=== PATIENT | female | born 2005 | race African-American/Black ===

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

== ENCOUNTER 2025-01-26 21:09 | Emergency (ER) | payer MEDICAID ==
[~2025-01-26] VITALS: Ht 162.6 cm; Wt 113.2 kg
[~2025-01-26 21:09] MED LIST changes: +FLUC200T PO
--- NOTE | 2025-01-26 21:27 | ED.PDOC ---
SOB-HPI HPI Comments 20 year old female came to ER due to cough. Patient has history of asthma, seen here multiple times for asthmatic attacks. For the past 4 days, she has been having non productive cough, shortness of breath and wheezing, progressively worsening despite steroids, inhalers and nebulizers. Patient saturating at 99% on room air upon arrival. Chief Complaint: Cough Time Seen by MD: 21:27 Primary Care Provider: tristan Reviewed notes: Nurses Notes Information Source: Patient Mode of Arrival: Ambulatory Severity: Moderate Timing: Days Duration: Since onset Context: At Rest History of: Asthma Prehospital treatment: Breathing Tx, Treatment Associated Signs and Symptoms: Wheeze, Cough Quality: Tightness Radiation: No Radiation Location: Chest (R), Chest (L) If cough with SOB: Non-Productive Past Medical History PAST MEDICAL HISTORY: Anxiety, Asthma, UTI'S Surgical History: Denies all surgeries ANALYSIS INTERN History: Denies all ANALYSIS INTERN Hx Family History Family History: Reviewed,noncontributory to illness Social History Smoker: Non-Smoker Alcohol: Denies ETOH Use Drugs: Denies Drug Use Lives In: Home Constitutional: denies: chills, diaphoresis, fatigue, fever, malaise, sweats, weakness, others EENTM: denies: blurred vision, double vision, ear bleeding, ear discharge, ear drainage, ear pain, ear ringing, eye pain, eye redness, hearing loss, mouth pain, mouth swelling, nasal discharge, nose bleeding, nose congestion, nose pain, photophobia, tearing, throat pain, throat swelling, voice changes, others Respiratory: reports: cough, SOB at rest, shortness of breath, wheezing; denies: hemoptysis, orthopnea, SOB with excertion, stridor, others Cardiovascular: denies: chest pain, dizzy spells, diaphoresis, Dyspnea on exertion, edema, irregular heart beat, left arm pain, lightheadedness, palpitations, PND, syncope, others Gastrointestinal: denies: abdomen distended, abdominal pain, blood streaked bowels, constipated, diarrhea, dysphagia, difficulty swallowing, hematemesis, melena, nausea, poor appetite, poor fluid intake, rectal bleeding, rectal pain, vomiting, others Genitourinary: denies: abnormal vagina bleeding, burning, dyspareunia, dysuria, flank pain, frequency, hematuria, incontinence, pain, , vagina discharge, urgency, others Neurological: denies: dizziness, fainting, headache, left sided numbness, left sided weakness, numbness, paresthesia, pre-existing deficit, right sided numbness, right sided weakness, seizure, speech problems, tingling, tremors, weakness, others Musculoskeletal: denies: back pain, gout, joint pain, joint swelling, muscle pain, muscle stiffness, neck pain, others Integumetry: denies: bruises, change in color, change in hair/nails, dryness, laceration, lesions, lumps, rash, wounds, others Allergic/Immunocompromised: denies: Difficulty Healing, Frequent Infections, Hives, Itching, others Hematologic/Lymphatic: denies: anemia, blood clots, easy bleeding, easy bruising, swollen glands, others Endocrine: denies: excessive hunger, excessive sweating, excessive thirst, excessive urination, flushing, intolerance to cold, intolerance to heat, unexplained weight gain, unexplained weight loss, others Psychiatric: denies: anxiety, bipolar disorder, depression, hopeless, panic disorder, schizophrenia, sleepless, suicidal, others Physical Exam General Appearance: No Apparent Distress, Normal, Other (able to speak in full sentences without difficulty) HEENT: Normal ENT Inspection, Pharynx Normal, TMs Normal Neck: Full Range of Motion, Non-Tender, Normal, Normal Inspection Respiratory: Chest Non-Tender, No Accessory Muscle Use, Wheezing (bilateral) Cardiovascular: No Edema, No JVD, No Murmur, No Gallop, Normal Peripheral Pulses, Regular Rate/Rhythm Breast Exam: Deferred Gastrointestinal: No Organomegaly, Non Tender, No Pulsatile Mass, Normal Bowel Sounds, Soft Genitalia: Deferred Pelvic: Deferred Rectal: Deferred Extremities: No calf tenderness, Normal capillary refill, Normal inspection, Normal range of motion, Non-tender, No pedal edema Musculoskeletal : Apperance: Normal 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 Was a procedure done?: No Differential Dx Differential Diagnosis: Anxiety, Asthma, Bronchitis, CHF, COPD, Hyperventilation, Panic Attack, Pneumonia, Pneumothorax, Respiratory Distress, URI X-Ray, Labs, Meds, VS Vital Signs Date Time Temp Pulse Resp B/P (MAP) Pulse Ox O2 Delivery O2 Flow Rate FiO2 01/26/25 22:51 99.3 85 19 127/71 (89) 98 99.3 01/26/25 22:51 85 19 98 Room Air 01/26/25 22:44 20 98 Room Air* 0 21 01/26/25 21:17 16 99 Room Air* 0 21 01/26/25 21:17 98.3 90 16 133/80 (97) 99 98.3 Current Medications Medications (Trade) Dose Ordered Sig/Devon Route Start Time Stop Time Status Last Admin Albuterol (Ventolin Medneb) 5 mg ONCE ONCE NEB 01/26/25 21:30 01/26/25 21:31 DC 01/26/25 22:44 Ipratropium [place] (Atrovent Medneb) 0.5 mg ONCE ONCE NEB 01/26/25 21:30 01/26/25 21:31 DC 01/26/25 22:44 Dexamethasone Sodium Phosphate (Decadron Injection) 10 mg ONCE ONCE PO 01/26/25 21:30 01/26/25 21:31 DC 01/26/25 22:49 Time of 1ST Reevaluation: 21:22 Reevaluation 1ST: Unchanged Time of 2ND Reevaluation: 23:12 Reevaluation 2ND: Resolved Patient Education/Counseling: Diagnosis, Treatment, Prognosis, Need For Follow Up Family Education/Counseling: No Family Present Additional Information -Reviewed patient's previous visit(s):ED physicians notes on 10/05/2023, 02/10/2024 and 05/17/2024 regarding asthmatic attacks - The following tests were ordered, and results were reviewed by me: - Additional information was gathered from interviewing the following independent Historian: - I reviewed and agreed with the following test results read by other provider: - I discussed treatments and results with medical personnel and: patient Comprehensive systems review obtained and negative except for what is stated in the HPI. pt is feeling better, lungs are clear. she has medications at home and does not need steroid or inhalers/med nebs Departure 1 Departure Time of Disposition: 23:13 Impression: Primary Impression: Asthma exacerbation Qualified Codes: J45.21 - Mild intermittent asthma with (acute) exacerbation Disposition: HOME / SELF CARE / HOMELESS Condition: Good Discharged With: Self Critical Care Note Critical Care Time?: No Stability Stability form required: No Heart Score Heart Score: Heart Score Response (Comments) Value History N/A 0 EKG N/A 0 Age N/A 0 Risk Factors N/A 0 Troponin N/A 0 Total 0 I personally scribed for JESSIE BAUTISTA MD ([email or web address]) on 01/26/25 at 21:27. Electronically submitted by Rodney Lenz ([email or web address]). JESSIE BAUTISTA MD Jan 26, 2025 21:27
[2025-01-26] MEDS: IPRATROPIUM BROM 0.5 MG/2.5ML INH SOL NEB ONE (22:44)
[2025-01-26] MEDS: ALBUTEROL SULF 2.5 MG/0.5ML(0.5%) NEB SOLN NEB ONE (22:44)
[2025-01-26] MEDS: DexAMETHasone SOD PHOS 10MG/1ML VIAL INJ PO ONE (22:49)
[2025-01-26 22:51] VITALS: BP 127/71; PULSE 85; RESP 19; TEMP 99.3; O2SAT 98
== END 2025-01-26 23:22 | disposition home or self-care (01) ==
LOC: ER 21:09
DX: J45.901 Unspecified asthma with (acute) exacerbation (principal); F41.9 Anxiety disorder, unspecified
CPT/HCPCS: 94640; 99283; J1100

== ENCOUNTER 2025-03-28 09:50 | Emergency (ER) | payer OTHER, MEDICAID ==
[~2025-03-28] VITALS: Ht 160 cm; Wt 118.4 kg
--- NOTE | 2025-03-28 10:27 | ED.PDOC ---
History of Present Illness HPI Comments This is a 20-year-old female who comes in with chief complaint of dysuria as well as frequency. The patient states that the symptoms started one week ago. There has been no nausea, vomiting or diarrhea. The patient denies any other complaints at this time. Chief Complaint: Urinary Time Seen by MD: 10:16 Primary Care Provider: kun Reviewed Notes: Nurses Notes, Medications, Allergies (Allergies to penicillin) Allergies: Coded Allergies: Penicillin G (Verified Allergy, Severe, 06/28/11) Penicillins (Verified Allergy, Unknown, 01/26/25) Home Meds Active Scripts Ciprofloxacin Hcl (Cipro) 500 Mg Tab, 1 TAB PO BID, #14 TAB Prov:ETRELL MANCILLA MD 03/28/25 Fluconazole (Diflucan) 200 Mg Tab, 1 TAB PO DAILY, #1 TAB Prov:EDIE HERR MD 11/06/24 Nitrofurantoin Monohydrate Mac (Macrobid) 100 Mg Cap, 100 MG PO BID, #14 CAP Prov:EDIE HERR MD 11/06/24 Fluconazole (Fluconazole) 150 Mg Tab, 1 TAB PO NOW for 2 Days, #2 TAB Take 1 tab now before starting antibiotics 1 tab after completion of antibiotics Prov:GERARD [facility] 09/25/24 Sulfamethoxazole W/Trimethopri (Bactrim Ds Tablet) 1 Tab Tb, 1 TAB PO BID for 7 Days, #14 TAB Prov:GER[facility] 09/25/24 Cefdinir (Cefdinir) 300 Mg Cap, 1 CAP PO BID for 7 Days, #14 CAP Prov:GISELLE FRY MD 06/29/24 Prednisone (Prednisone) 20 Mg Tab, 60 MG PO DAILY for 5 Days, #15 MG Prov:BURKE MEZA PAC 05/18/24 Metronidazole (Metronidazole) 500 Mg Tab, 500 MG PO BID, #14 TAB Prov:FRED CARABALLO 04/12/24 Sulfamethoxazole W/Trimethopri (Bactrim Ds Tablet) 1 Tab Tb, 1 TAB PO BID for 7 Days, #14 TAB Prov:FRED CARABALLO 04/12/24 Hydroxyzine Hcl (Hydroxyzine Hcl) 25 Mg Tab, 1 TAB PO TID, #30 TAB Prov:ALEX GUTIÉRREZ MD 03/03/24 Prednisone (Prednisone) 20 Mg Tab, 40 MG PO DAILY, #5 MG Prov:ALEX GUTIÉRREZ MD 03/03/24 Azithromycin (Azithromycin) 250 Mg Tab, 250 MG PO DAILY for 6 Days, #6 TAB Prov:MELVI CARRERA DO 02/11/24 Acetaminophen (Acetaminophen) 500 Mg Tab, 500 MG PO Q4HP PRN, #30 TAB Prov:ROMEO,FLORIDALMA [facility] 10/16/23 Ibuprofen (Ibuprofen) 800 Mg Tab, 1 TAB PO Q8HP PRN, #30 TAB 0 Refills Prov:ROMEO,FLORIDALMA [facility] 10/16/23 Nitrofurantoin Monohydrate Mac (Macrobid) 100 Mg Cap, 100 MG PO BID for 5 Days, #10 CAP Prov:ROMEO,FLORIDALMA [facility] 10/16/23 Oseltamivir Phosphate (Tamiflu) 75 Mg Cap, 75 MG PO BID for 5 Days, #10 CAP Prov:ROMEOFLORIDALMA [facility] 10/16/23 Fluconazole (Diflucan) 150 Mg Tab, 1 TAB PO ONCE, #1 TAB 1 Refill Prov:JUJU FREEMANP 10/05/23 Albuterol Sulfate (VENTOLIN MDI) 90 Mcg Ih, 90 MCG IN Q4HR PRN, #1 INH Prov:JUJU FREEMANP 10/05/23 Prednisone (Prednisone) 20 Mg Tab, 60 MG PO DAILY for 5 Days, #15 MG Prov:JUJU FREEMAN [facility] 10/05/23 Cephalexin Monohydrate (Cephalexin) 500 Mg Cap, 1 CAP PO TID for 7 Days, #21 CAP Prov:JUJU FREEMAN [facility] 10/05/23 Promethazine-Dm (Promethazine Dm 6.25-15 mg/5Ml) 1 Sri Sri, 1 SRI PO BID PRN for 14 Days, #150 ML Prov:ROSA NINA 08/14/23 Prednisone (Prednisone) 20 Mg Tab, 40 MG PO DAILY for 3 Days, #6 MG Prov:ROSA NINA 08/14/23 Azithromycin (ZITHROMAX TABLET) 250 Mg Tb, 250 MG PO DAILY for 5 Days, #6 TAB Take 500mg by mouth on day 1 then take 250mg by mouth on days 2-5. Prov:ROSA NINA 08/14/23 Nitrofurantoin (Nitrofurantoin) 100 Mg Cap, 1 CAP PO BID for 7 Days, #14 CAP Prov:PAIZBLANCA 07/04/23 Promethazine-Dm (Promethazine Dm 6.25-15 mg/5Ml) 1 [place], 5 ML PO TID, #150 ML Prov:FRED CARABALLO 02/25/23 Prednisone (Prednisone) 20 Mg Tab, 60 MG PO DAILY, #15 MG Prov:FRED CARABALLO 02/25/23 Azithromycin (Azithromycin) 500 Mg Tab, 1 TAB PO DAILY, #5 TAB Prov:FRED CARABALLO 02/25/23 Information Source: Patient Mode of Arrival: Ambulatory Severity: Mild Duration: Since onset Prehospital treatment: None Location: Suprapubic pain Associated signs and symptoms Dysuria and frequency Past Medical History PAST MEDICAL HISTORY: Anxiety, Asthma, UTI'S Past Medical History (Other): Sleep apnea Surgical History: Denies all surgeries [employer]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 [employer]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 Hx Family History Family History: Family hx of DM, Family hx of Cancer, Family hx of heart alex Social History Smoker: Non-Smoker Alcohol: Occasionally Drugs: Denies Drug Use Lives In: Home Constitutional: denies: chills, diaphoresis, fatigue, fever, malaise, sweats, weakness, others EENTM: denies: blurred vision, double vision, ear bleeding, ear discharge, ear drainage, ear pain, ear ringing, eye pain, eye redness, hearing loss, mouth pain, mouth swelling, nasal discharge, nose bleeding, nose congestion, nose pain, photophobia, tearing, throat pain, throat swelling, voice changes, others Respiratory: denies: cough, hemoptysis, orthopnea, SOB at rest, shortness of breath, SOB with excertion, stridor, wheezing, others Cardiovascular: denies: chest pain, dizzy spells, diaphoresis, Dyspnea on exertion, edema, irregular heart beat, left arm pain, lightheadedness, palpitations, PND, syncope, others Gastrointestinal: denies: abdomen distended, abdominal pain, blood streaked bowels, constipated, diarrhea, dysphagia, difficulty swallowing, hematemesis, melena, nausea, poor appetite, poor fluid intake, rectal bleeding, rectal pain, vomiting, others Genitourinary: reports: dysuria, frequency; denies: abnormal vagina bleeding, b urning, dyspareunia, flank pain, hematuria, incontinence, pain, , vagina discharge, urgency, others Neurological: denies: dizziness, fainting, headache, left sided numbness, left sided weakness, numbness, paresthesia, pre-existing deficit, right sided numbness, right sided weakness, seizure, speech problems, tingling, tremors, weakness, others Musculoskeletal: denies: back pain, gout, joint pain, joint swelling, muscle pain, muscle stiffness, neck pain, others Integumetry: denies: bruises, change in color, change in hair/nails, dryness, laceration, lesions, lumps, rash, wounds, others Allergic/Immunocompromised: denies: Difficulty Healing, Frequent Infections, Hives, Itching, others Hematologic/Lymphatic: denies: anemia, blood clots, easy bleeding, easy bruising, swollen glands, others Endocrine: denies: excessive hunger, excessive sweating, excessive thirst, excessive urination, flushing, intolerance to cold, intolerance to heat, unexplained weight gain, unexplained weight loss, others Psychiatric: denies: anxiety, bipolar disorder, depression, hopeless, panic disorder, schizophrenia, sleepless, suicidal, others Physical Exam General Appearance: No Apparent Distress HEENT: Normal ENT Inspection, Pharynx Normal, TMs Normal Neck: Full Range of Motion, Non-Tender, Normal, Normal Inspection Respiratory: Chest Non-Tender, Lungs Clear, No Accessory Muscle Use, No Respiratory Distress, Normal Breath Sounds Cardiovascular: No Edema, No JVD, No Murmur, No Gallop, Normal Peripheral Pulses, Regular Rate/Rhythm Breast Exam: Deferred Gastrointestinal: No Organomegaly, No Pulsatile Mass, Normal Bowel Sounds, Soft, Suprapubic, Tenderness Genitalia: Deferred Pelvic: Deferred Rectal: Deferred Extremities: No calf tenderness, Normal capillary refill, Normal inspection, Normal range of motion, Non-tender, No pedal edema Musculoskeletal : Apperance: Normal 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 Was a procedure done?: No Differential Dx Considerations may include: UTI, sepsis, generalized weakness X-Ray, Labs, Meds, VS Vital Signs Date Time Temp Pulse Resp B/P (MAP) Pulse Ox O2 Delivery O2 Flow Rate FiO2 03/28/25 10:03 98.4 103 17 112/72 (85) 100 98.4 Lab Test 03/28/25 10:00 Range/Units Urine Color Light-orange Yellow Urine Clarity Turbid H Clear Urine pH 6.0 5.0-9.0 Urine Specific [place] 1.035 1.001-1.035 Urine Protein 1+ H Negative Urine Ketones Trace Negative Urine Blood 3+ H Negative /uL Urine Nitrite Negative Negative Urine Bilirubin Negative Negative Urine Urobilinogen 2 H Negative mg/dL Urine Leukocyte Esterase 1+ Negative /uL Urine RBC 655 0 - 4 /hpf Urine Microscopic WBC 54 H 0-5 /HPF Urine Squamous Epithelial Cells Few <5 /hpf Urine Bacteria None seen None Seen /hpf Urine Mucus Few None Seen Urine Yeast (Budding) Few None Seen /hpf Urine Glucose Normal Normal mg/dL Urine Test Negative Negative Patient is being discharged with a diagnosis of UTI The patient was given a prescription of Cipro The patient will return to the emergency department's condition worsens. The test is negative Time of 1ST Reevaluation: 10:27 Reevaluation 1ST: Unchanged Patient Education/Counseling: Diagnosis, Treatment, Prognosis, Need For Follow Up Family Education/Counseling: No Family Present Departure 1 Departure Time of Disposition: 10:59 Impression: Primary Impression: UTI (urinary tract infection) Qualified Codes: N30.00 - Acute cystitis without hematuria Disposition: 01 HOME / SELF CARE / HOMELESS Condition: Fair e-Prescriptions Ciprofloxacin Hcl (Cipro) 500 Mg Tab 1 TAB PO BID, #14 TAB Prov: TERELL MANCILLA MD 03/28/25 Discharged With: Self Critical Care Note Critical Care Time?: No Stability Stability form required: No Heart Score Heart Score: Heart Score Response (Comments) Value History N/A 0 EKG N/A 0 Age N/A 0 Risk Factors N/A 0 Troponin N/A 0 Total 0 TERELL MANCILLA MD March 28, 2025 10:27
[2025-03-28 10:32] LABS: Urine Bacteria None Seen /hpf (None Seen)
[2025-03-28 10:57] LABS: Urine Blood 3+ /uL (Negative); Urine Budding Yeast FEW /hpf (None Seen); Urine Clarity Turbid (Clear); Urine Color Light-Orange (Yellow); Urine Mucus FEW (None Seen); Urine Protein, UAD 1+ (Negative); Urine Specific Gravity 1.035 (1.001-1.035); Urine Squamous Epithelial Cell FEW /hpf (<5); Urine Urobilinogen 2 mg/dL (Negative); Urine WBC 54 /HPF (0-5)
[2025-03-28] MEDS ORDERED: CIPR-173 PO (10:59)
[2025-03-28 11:42] VITALS: BP 126/72; PULSE 89; RESP 18; TEMP 98.6; O2SAT 100
== END 2025-03-28 11:45 | disposition home or self-care (01) ==
LOC: ER 09:50
DX: N39.0 Urinary tract infection, site not specified (principal); F41.9 Anxiety disorder, unspecified; J45.909 Unspecified asthma, uncomplicated; G47.30 Sleep apnea, unspecified; F10.90 Alcohol use, unspecified, uncomplicated; Y90.9 Presence of alcohol in blood, level not specified; Z88.0 Allergy status to penicillin; Z79.52 Long term (current) use of systemic steroids; Z88.1 Allergy status to other antibiotic agents; Z79.899 Other long term (current) drug therapy; Z87.440 Personal history of urinary (tract) infections
CPT/HCPCS: 81001; 81025

== ENCOUNTER 2025-03-29 11:09 | Emergency (ER) | payer OTHER, MEDICAID ==
[~2025-03-29] VITALS: Ht 160 cm; Wt 118.7 kg
[~2025-03-29 11:09] MED LIST changes: +CIPR-173 PO
--- NOTE | 2025-03-29 11:38 | ED.PDOC ---
History of Present Illness HPI Comments This is a 20-year-old female who comes in with chief complaint of headache as well as some sinus pain. The patient states that the symptoms have been going on for the past three days. The patient was actually seen here yesterday and diagnosed with a UTI. She is also complaining of some nausea as well as blurred vision for the past three days. Upon arrival, the patient was having some wheezing as well. The patient does have a history of asthma and states that she does need a breathing treatment. Time Seen by MD: 11:18 Primary Care Provider: kun Reviewed Notes: Nurses Notes, Medications, Allergies (No allergies to m edications) Allergies: Coded Allergies: Penicillin G (Verified Allergy, Severe, 06/28/11) Penicillins (Verified Allergy, Unknown, 01/26/25) Home Meds Active Scripts Ciprofloxacin Hcl (Cipro) 500 Mg Tab, 1 TAB PO BID, #14 TAB Prov:TERELL MANCILLA MD 03/28/25 Fluconazole (Diflucan) 200 Mg Tab, 1 TAB PO DAILY, #1 TAB Prov:EDIE HERR MD 11/06/24 Nitrofurantoin Monohydrate Mac (Macrobid) 100 Mg Cap, 100 MG PO BID, #14 CAP Prov:EDIE HERR MD 11/06/24 Fluconazole (Fluconazole) 150 Mg Tab, 1 TAB PO NOW for 2 Days, #2 TAB Take 1 tab now before starting antibiotics 1 tab after completion of antibiotics Prov:GERARD ALVAREZ 09/25/24 Sulfamethoxazole W/Trimethopri (Bactrim Ds Tablet) 1 Tab Tb, 1 TAB PO BID for 7 Days, #14 TAB Prov:GERARD ALVAREZ 09/25/24 Cefdinir (Cefdinir) 300 Mg Cap, 1 CAP PO BID for 7 Days, #14 CAP Prov:GISELLE FRY MD 06/29/24 Prednisone (Prednisone) 20 Mg Tab, 60 MG PO DAILY for 5 Days, #15 MG Prov:BURKE MEZA PAC 05/18/24 Metronidazole (Metronidazole) 500 Mg Tab, 500 MG PO BID, #14 TAB Prov:FRED CARABALLO PA 04/12/24 Sulfamethoxazole W/Trimethopri (Bactrim Ds Tablet) 1 Tab Tb, 1 TAB PO BID for 7 Days, #14 TAB Prov:FRED CARABALLO 04/12/24 Hydroxyzine Hcl (Hydroxyzine Hcl) 25 Mg Tab, 1 TAB PO TID, #30 TAB Prov:ALEX GUTIÉRREZ MD 03/03/24 Prednisone (Prednisone) 20 Mg Tab, 40 MG PO DAILY, #5 MG Prov:ALEX GUTIÉRREZ MD 03/03/24 Azithromycin (Azithromycin) 250 Mg Tab, 250 MG PO DAILY for 6 Days, #6 TAB Prov:MELVI CARRERA DO 02/11/24 Acetaminophen (Acetaminophen) 500 Mg Tab, 500 MG PO Q4HP PRN, #30 TAB Prov:ROMEOFLORIDALMA Dewayne PAC 10/16/23 Ibuprofen (Ibuprofen) 800 Mg Tab, 1 TAB PO Q8HP PRN, #30 TAB 0 Refills Prov:FLORIDALMA [facility] 10/16/23 Nitrofurantoin Monohydrate Mac (Macrobid) 100 Mg Cap, 100 MG PO BID for 5 Days, #10 CAP Prov:FLORIDALMA [facility] 10/16/23 Oseltamivir Phosphate (Tamiflu) 75 Mg Cap, 75 MG PO BID for 5 Days, #10 CAP Prov:FLORIDALMA [facility] 10/16/23 Fluconazole (Diflucan) 150 Mg Tab, 1 TAB PO ONCE, #1 TAB 1 Refill Prov:JUJU FREEMANP 10/05/23 Albuterol Sulfate (VENTOLIN MDI) 90 Mcg Ih, 90 MCG IN Q4HR PRN, #1 INH Prov:JUJU FREEMANP 10/05/23 Prednisone (Prednisone) 20 Mg Tab, 60 MG PO DAILY for 5 Days, #15 MG Prov:JUJU FREEMAN [facility] 10/05/23 Cephalexin Monohydrate (Cephalexin) 500 Mg Cap, 1 CAP PO TID for 7 Days, #21 CAP Prov:JUJU FREEMAN [facility] 10/05/23 Promethazine-Dm (Promethazine Dm 6.25-15 mg/5Ml) 1 Sri Sri, 1 SRI PO BID PRN for 14 Days, #150 ML Prov:ROSA NINAP 08/14/23 Prednisone (Prednisone) 20 Mg Tab, 40 MG PO DAILY for 3 Days, #6 MG Prov:ROSA NINA [employer] 08/14/23 Azithromycin (ZITHROMAX TABLET) 250 Mg Tb, 250 MG PO DAILY for 5 Days, #6 TAB Take 500mg by mouth on day 1 then take 250mg by mouth on days 2-5. Prov:MAICOROSA Ron [facility] 08/14/23 Nitrofurantoin (Nitrofurantoin) 100 Mg Cap, 1 CAP PO BID for 7 Days, #14 CAP Prov:BLANCA PAIZ [facility] 07/04/23 Promethazine-Dm (Promethazine Dm 6.25-15 mg/5Ml) 1 Sri Sri, 5 ML PO TID, #150 ML Prov:FRED CARABALLO 02/25/23 Prednisone (Prednisone) 20 Mg Tab, 60 MG PO DAILY, #15 MG Prov:FRED CARABALLO 02/25/23 Azithromycin (Azithromycin) 500 Mg Tab, 1 TAB PO DAILY, #5 TAB Prov:FRED CARABALLO 02/25/23 Information Source: Patient Mode of Arrival: Ambulatory Severity: Moderate Timing: Days Duration: Since onset Prehospital treatment: None Associated signs and symptoms Associated dizziness as well as nausea, blurred vision and headache Past Medical History PAST MEDICAL HISTORY: Anxiety, Asthma, UTI'S Surgical History: Denies all surgeries [employer] History: Denies all [employer]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 Hx Family History Family History: Family hx of DM, Family hx of Cancer, Family hx of heart alex Social History Smoker: Non-Smoker Alcohol: Occasionally Drugs: Denies Drug Use Lives In: Home Constitutional: denies: chills, diaphoresis, fatigue, fever, malaise, sweats, weakness, others EENTM: reports: blurred vision; denies: double vision, ear bleeding, ear discharge, ear drainage, ear pain, ear ringing, eye pain, eye redness, hearing loss, mouth pain, mouth swelling, nasal discharge, nose bleeding, nose congestion, nose pain, photophobia, tearing, throat pain, throat swelling, voice changes, others Respiratory: reports: shortness of breath, wheezing; denies: cough, hemoptysis, orthopnea, SOB at rest, SOB with excertion, stridor, others Cardiovascular: denies: chest pain, dizzy spells, diaphoresis, Dyspnea on exertion, edema, irregular heart beat, left arm pain, lightheadedness, palpitations, PND, syncope, others Gastrointestinal: reports: nausea; denies: abdomen distended, abdominal pain, blood streaked bowels, constipated, diarrhea, dysphagia, difficulty swallowing, hematemesis, melena, poor appetite, poor fluid intake, rectal bleeding, rectal pain, vomiting, others Genitourinary: denies: abnormal vagina bleeding, burning, dyspareunia, dysuria, flank pain, frequency, hematuria, incontinence, pain, , vagina discharge, urgency, others Neurological: reports: dizziness, headache; denies: fainting, left sided numbness, left sided weakness, numbness, paresthesia, pre-existing deficit, right sided numbness, right sided weakness, seizure, speech problems, tingling, tremors, weakness, others Musculoskeletal: denies: back pain, gout, joint pain, joint swelling, muscle pain, muscle stiffness, neck pain, others Integumetry: denies: bruises, change in color, change in hair/nails, dryness, laceration, lesions, lumps, rash, wounds, others Allergic/Immunocompromised: denies: Difficulty Healing, Frequent Infections, Hives, Itching, others Hematologic/Lymphatic: denies: anemia, blood clots, easy bleeding, easy bruising, swollen glands, others Endocrine: denies: excessive hunger, excessive sweating, excessive thirst, excessive urination, flushing, intolerance to cold, intolerance to heat, unexplained weight gain, unexplained weight loss, others Psychiatric: denies: anxiety, bipolar disorder, depression, hopeless, panic disorder, schizophrenia, sleepless, suicidal, others Physical Exam General Appearance: Mild Distress HEENT: Normal ENT Inspection, Pharynx Normal, TMs Normal, Other (Tenderness to the sinuses) Neck: Full Range of Motion, Non-Tender, Normal, Normal Inspection Respiratory: Chest Non-Tender, Decreased Breath Sounds, No Accessory Muscle Use, Respiratory Distress, Wheezing Cardiovascular: No Edema, No JVD, No Murmur, No Gallop, Normal Peripheral Pulses, Regular Rate/Rhythm Breast Exam: Deferred Gastrointestinal: No Organomegaly, Non Tender, No Pulsatile Mass, Normal Bowel Sounds, Soft Genitalia: Deferred Pelvic: Deferred Rectal: Deferred Extremities: No calf tenderness, Normal capillary refill, Normal inspection, Normal range of motion, Non-tender, No pedal edema Musculoskeletal : Apperance: Normal Neurologic: Alert, spinning frame changer II-XII nml as Tested, No Motor Deficits, Normal Affect, Normal Mood, No Sensory Deficits Cerebellar Function: Normal Reflexes: Normal Skin: Dry, Normal Color, Warm Lymphatic: No Adenopathy Was a procedure done? Was a procedure done?: No Differential Dx Considerations may include: Bronchitis, pneumonia X-Ray, Labs, Meds, VS Vital Signs Date Time Temp Pulse Resp B/P (MAP) Pulse Ox O2 Delivery O2 Flow Rate FiO2 03/29/25 12:26 18 96 Room Air* 0 21 03/29/25 11:40 98.7 87 18 138/92 (107) 97 98.7 Current Medications Medications (Trade) Dose Ordered Sig/Devon Route Start Time Stop Time Status Last Admin Ipratropium [place] (Atrovent Medneb) 1 mg ONCE ONCE N 03/29/25 11:45 03/29/25 11:46 DC 03/29/25 12:26 Albuterol (Ventolin Medneb) 20 mg ONCE ONCE HHN 03/29/25 11:45 03/29/25 11:46 DC 03/29/25 12:26 The patient was given a continuous breathing treatment of albuterol and Atrovent. A sinus series x-ray was ordered and shows: Images Reviewed?: Images reviewed and evaluated by me Time of 1ST Reevaluation: 11:37 Reevaluation 1ST: Unchanged Patient Education/Counseling: Diagnosis, Treatment, Prognosis, Need For Follow Up Family Education/Counseling: No Family Present Departure 1 Departure Time of Disposition: 12:34 Impression: Primary Impression: Asthma exacerbation Qualified Codes: J45.901 - Unspecified asthma with (acute) exacerbation Additional Impression: Tension headache Disposition: HOME / SELF CARE / HOMELESS Condition: Fair Discharged With: Self Critical Care Note Critical Care Time?: No Stability Stability form required: No Heart Score Heart Score: Heart Score Response (Comments) Value History N/A 0 EKG N/A 0 Age N/A 0 Risk Factors N/A 0 Troponin N/A 0 Total 0 TERELL MANCILLA MD March 29, 2025 11:38
--- NOTE | 2025-03-29 12:02 | DVH ---
PARANASAL SINUSES: INDICATION: pain and dizziness TECHNIQUE: 4 views FINDINGS: The paranasal sinuses are well-aerated. No abnormal soft tissue densities or air-fluid levels are present. Osseous alignment is anatomic. No displaced fractures are demonstrated. IMPRESSION: Normal sinus series
[2025-03-29] MEDS: ALBUTEROL SULF 2.5 MG/0.5ML(0.5%) NEB SOLN HHN ONE (12:26)
[2025-03-29] MEDS: IPRATROPIUM BROM 0.5 MG/2.5ML INH SOL HHN ONE (12:26)
[2025-03-29 13:04] VITALS: BP 146/78; PULSE 106; RESP 18; TEMP 98.1; O2SAT 99
== END 2025-03-29 14:03 | disposition home or self-care (01) ==
LOC: ER 11:14
DX: J45.901 Unspecified asthma with (acute) exacerbation (principal); G44.209 Tension-type headache, unspecified, not intractable; F41.9 Anxiety disorder, unspecified; F10.90 Alcohol use, unspecified, uncomplicated; Y90.9 Presence of alcohol in blood, level not specified; Z87.440 Personal history of urinary (tract) infections; Z88.0 Allergy status to penicillin; Z79.899 Other long term (current) drug therapy; Z79.52 Long term (current) use of systemic steroids
CPT/HCPCS: 70210; 94640

== ENCOUNTER 2025-04-11 04:11 | Inpatient (IN) | payer MEDICAID, OTHER ==
[~2025-04-11] VITALS: Ht 160 cm; Wt 122.5 kg
[2025-04-11] VITALS (7 sets, daily range): BP systolic 120–139; BP diastolic 74–84; PULSE 60–92; RESP 16–20; TEMP 97.7–98.5; O2SAT 98–100
--- NOTE | 2025-04-11 04:40 | ED.PDOC ---
History of Present Illness HPI Comments 20 y/o F presents with nonradiating, substernal chest pain. Patient endorses on sudden and unprovoked onset of pain that awoke her from her sleep at around 0300. Pain is stated to have been constant since, with associated sweats and shaking. Only history of anxiety, asthma, and recent UTI and FMHx of gallstones. Patient denies having any nausea, vomiting, diarrhea, or further associated symptoms. Chief Complaint: Abdominal Pain Time Seen by MD: 04:20 Primary Care Provider: kun Reviewed Notes: Nurses Notes, Medications, Allergies Allergies: Coded Allergies: Penicillin G (Verified Allergy, Severe, 06/28/11) Penicillins (Verified Allergy, Unknown, 01/26/25) Home Meds Active Scripts Ciprofloxacin Hcl (Cipro) 500 Mg Tab, 1 TAB PO BID, #14 TAB Prov:TERELL MANCILLA MD 03/28/25 Fluconazole (Diflucan) 200 Mg Tab, 1 TAB PO DAILY, #1 TAB Prov:EDIE HERR MD 11/06/24 Nitrofurantoin Monohydrate Mac (Macrobid) 100 Mg Cap, 100 MG PO BID, #14 CAP Prov:EDIE HERR MD 11/06/24 Fluconazole (Fluconazole) 150 Mg Tab, 1 TAB PO NOW for 2 Days, #2 TAB Take 1 tab now before starting antibiotics 1 tab after completion of antibiotics Prov:GERARD ALVAREZ 09/25/24 Sulfamethoxazole W/Trimethopri (Bactrim Ds Tablet) 1 Tab Tb, 1 TAB PO BID for 7 Days, #14 TAB Prov:GERARD ALVAREZ 09/25/24 Cefdinir (Cefdinir) 300 Mg Cap, 1 CAP PO BID for 7 Days, #14 CAP Prov:GISELLE FRY MD 06/29/24 Prednisone (Prednisone) 20 Mg Tab, 60 MG PO DAILY for 5 Days, #15 MG Prov:BURKE MEZA 05/18/24 Metronidazole (Metronidazole) 500 Mg Tab, 500 MG PO BID, #14 TAB Prov:FRED CARABALLO 04/12/24 Sulfamethoxazole W/Trimethopri (Bactrim Ds Tablet) 1 Tab Tb, 1 TAB PO BID for 7 Days, #14 TAB Prov:FRED CARABALLO 04/12/24 Hydroxyzine Hcl (Hydroxyzine Hcl) 25 Mg Tab, 1 TAB PO TID, #30 TAB Prov:ALEX GUTIÉRREZ MD 03/03/24 Prednisone (Prednisone) 20 Mg Tab, 40 MG PO DAILY, #5 MG Prov:ALEX GUTIÉRREZ MD 03/03/24 Azithromycin (Azithromycin) 250 Mg Tab, 250 MG PO DAILY for 6 Days, #6 TAB Prov:DEBIMELVI Ariadne DELGADILLO 02/11/24 Acetaminophen (Acetaminophen) 500 Mg Tab, 500 MG PO Q4HP PRN, #30 TAB Prov:FLORIDALMA [facility] 10/16/23 Ibuprofen (Ibuprofen) 800 Mg Tab, 1 TAB PO Q8HP PRN, #30 TAB 0 Refills Prov:FLORIDALMA [facility] 10/16/23 Nitrofurantoin Monohydrate Mac (Macrobid) 100 Mg Cap, 100 MG PO BID for 5 Days, #10 CAP Prov:FLORIDALMA [facility] 10/16/23 Oseltamivir Phosphate (Tamiflu) 75 Mg Cap, 75 MG PO BID for 5 Days, #10 CAP Prov:FLORIDALMA [facility] 10/16/23 Fluconazole (Diflucan) 150 Mg Tab, 1 TAB PO ONCE, #1 TAB 1 Refill Prov:JUJU FREEMAN [facility] 10/05/23 Albuterol Sulfate (VENTOLIN MDI) 90 Mcg Ih, 90 MCG IN Q4HR PRN, #1 INH Prov:JUJU FREEMAN [facility] 10/05/23 Prednisone (Prednisone) 20 Mg Tab, 60 MG PO DAILY for 5 Days, #15 MG Prov:JUJU FREEMAN [facility] 10/05/23 Cephalexin Monohydrate (Cephalexin) 500 Mg Cap, 1 CAP PO TID for 7 Days, #21 CAP Prov:JUJU FREEMAN [facility] 10/05/23 Promethazine-Dm (Promethazine Dm 6.25-15 mg/5Ml) 1 [place], 1 SRI PO BID PRN for 14 Days, #150 ML Prov:ROSA NINA [facility] 08/14/23 Prednisone (Prednisone) 20 Mg Tab, 40 MG PO DAILY for 3 Days, #6 MG Prov:ROSA NINA [facility] 08/14/23 Azithromycin (ZITHROMAX TABLET) 250 Mg Tb, 250 MG PO DAILY for 5 Days, #6 TAB Take 500mg by mouth on day 1 then take 250mg by mouth on days 2-5. Prov:ROSA NINA [employer]ILY [employer] 08/14/23 Nitrofurantoin (Nitrofurantoin) 100 Mg Cap, 1 CAP PO BID for 7 Days, #14 CAP Prov:BLANCA PAIZ [employer]ILY [employer]UD[employer] 07/04/23 Promethazine-Dm (Promethazine Dm 6.25-15 mg/5Ml) 1 [place], 5 ML PO TID, #150 ML Prov:FRED CARABALLO 02/25/23 Prednisone (Prednisone) 20 Mg Tab, 60 MG PO DAILY, #15 MG Prov:FRED CARABALLO 02/25/23 Azithromycin (Azithromycin) 500 Mg Tab, 1 TAB PO DAILY, #5 TAB Prov:FRED CARABALLO 02/25/23 Reported Medications Ergocalciferol (Vitamin D) 50,000 Unit Cap, 1 CAP PO QWEEKLY 04/11/25 Information Source: Patient Mode of Arrival: Ambulatory Severity: Moderate Timing: Hours Review of Systems: REVIEW OF SYSTEMS: Sweats. No fever, no chills, or fatigue HEENT: No sore throat, no earache, no congestion, no neck pain. Cardiac: Chest pain. No palpitations. Lungs: No shortness of breath, no cough. GI: No nausea, no vomiting, no diarrhea, no constipation, no abdominal pain : No dysuria, frequency, or urgency. No hematuria. Musculoskeletal: No joint pain , no joint swelling, no extremity edema. Skin: No rash, no itching. Neuro: Tremors. No headache, no dizziness, no weakness Vital Signs Vital Signs Date Time Temp Pulse Resp B/P (MAP) Pulse Ox O2 Delivery O2 Flow Rate FiO2 04/11/25 08:00 98.7 90 18 132/80 (97) 99 98.7 04/11/25 05:15 Room Air* 0 21 Physical Exam General: Awake, alert and oriented. No acute distress. Skin: Skin in warm, dry and intact. Appropriate color for ethnicity. HEENT: The head is normocephalic and atraumatic. Conjunctivae are clear without exudates or hemorrhage. Sclera is non-icteric. EOM are intact. No signs of nystagmus. Eyelids are normal in appearance without swelling or lesions. Oral mucosa is pink and moist Neck: The neck is supple with normal range of motion. No JVD. Cardiac: Sternal chest wall is tender. Heart rate and rhythm are normal. No murmurs, gallops, or rubs are auscultated. Respiratory: No signs of respiratory distress. Lung sounds are clear in all lobes bilaterally without rales, rhonchi, or wheezes. Abdominal: Abdomen is soft, non-tender without distention, guarding or rigidity. Bowel sounds are present and normoactive in all four quadrants. Extremities: Upper and lower extremities are atraumatic in appearance without deformity or edema. Neurological: The patient is awake, alert and oriented to person, place, and time with normal speech. Speech is clear. There is no facial asymmetry. Psychiatric: Appropriate mood and affect. Good judgement and insight. Past Medical History PAST MEDICAL HISTORY: Anxiety, Asthma, UTI'S Surgical History: Denies all surgeries LIQUID LOADER History: Denies all LIQUID LOADER Hx Family History Family History: Family hx of DM, Family hx of Cancer, Family hx of heart alex Social History Smoker: Non-Smoker Alcohol: Occasionally Drugs: Denies Drug Use Lives In: Home Was a procedure done? Was a procedure done?: No EKG EKG : Pulse Rate (adult): 99 [place]: Normal Cardiac Rhythm: NSR Block: None Hypertrophy: None ST: Normal Differential Dx Considerations may include: Differential diagnoses considered include acute ischemic coronary syndrome, aortic dissection, cardiac tamponade, mediastinitis, pulmonary embolus, pneumothorax, tension pneumothorax, esophageal rupture, coronary artery vasospasm, myocarditis, pericarditis, pneumonia, pulmonary edema, esophageal tear, pancreatitis, aortic stenosis, dilated cardiomyopathy, hypertrophic cardiomyopathy, mitral valve prolapse, malignancy, pleuritis, pneumomediastinum, primary pulmonary hypertension, cholecystitis, esophageal spasm, esophagus, gastritis, GERD, peptic ulcer disease, costochondritis, fibromyalgia, rib fracture, herpes zoster, radicular syndromes, thoracic outlet syndrome, somatization. X-Ray, Labs, Meds, VS Vital Signs Date Time Temp Pulse Resp B/P (MAP) Pulse Ox O2 Delivery O2 Flow Rate FiO2 04/11/25 08:00 98.7 90 18 132/80 (97) 99 98.7 04/11/25 05:36 99 04/11/25 05:29 98.3 98 16 136/81 (99) 99 98.3 04/11/25 05:15 Room Air* 0 21 04/11/25 04:54 20 99 Room Air* 0 21 21 04/11/25 04:30 97.7 112 18 144/80 (101) 97 97.7 04/11/25 04:18 99 Lab Test 04/11/25 06:56 04/11/25 05:20 04/11/25 04:30 Range/Units Troponin I High Sensitivity < 3 L < 3 L </=34 ng/L White Blood Count 10.3 4.4-10.8 10^3/uL Red Blood Count 4.87 4.0-5.20 10^6/uL Hemoglobin 12.8 12.2-16.2 g/dL Hematocrit 38.1 36.0-46.0 % Mean Corpuscular Volume 78.3 L 80.0-100.0 fL Mean Corpuscular Hemoglobin 26.3 L 28.0-32.0 pg Mean Corpuscular Hemoglobin Concent 33.7 32.0-36.0 g/dL Red Cell Distribution Width 14.8 H 11.8-14.3 % Platelet Count 346 140-450 10^3/uL Mean Platelet Volume 7.5 6.9-10.8 fL Neutrophils (%) (Auto) 72.5 37.0-80.0 % Lymphocytes (%) (Auto) 19.4 10.0-50.0 % Monocytes (%) (Auto) 7.1 0.0-12.0 % Eosinophils (%) (Auto) 0.6 0.0-7.0 % Basophils (%) (Auto) 0.4 0.0-2.0 % Neutrophils # (Auto) 7.4 1.6-8.6 10 ^3/uL Lymphocytes # (Auto) 2.0 0.4-5.4 10 ^3/uL Monocytes # (Auto) 0.7 0-1.3 10 ^3/uL Eosinophils # (Auto) 0.1 0-0.8 10 ^3/uL Basophils # (Auto) 0 0-0.2 10 ^3/uL Nucleated Red Blood Cells 0.1 % Sodium Level 142 136-145 mmol/L Potassium Level 3.2 L 3.5-5.1 mmol/L Chloride Level 106 98-107 mmol/L Carbon Dioxide Level 24 20-31 mmol/L Anion Gap 12 5-15 Blood Urea Nitrogen 10 9-23 mg/dL Creatinine 0.86 0.550-1.02 mg/dL Glomerular Filtration Rate Calc 99 >90 mL/min BUN/Creatinine Ratio 11.6 10.0-20.0 Serum Glucose 115 H 74-106 mg/dL Hemoglobin A1c 5.4 <5.7 % A1C Calcium Level 9.2 8.7-10.4 mg/dL Magnesium Level 2.0 1.6-2.6 mg/dL Total Bilirubin 0.7 0.2-1.0 mg/dL Aspartate Amino Transferase (AST) 243 H 13-40 U/L Alanine Aminotransferase (ALT) 109 H 7-40 U/L Alkaline Phosphatase 105 46-116 U/L Creatine Kinase 84 34-145 U/L Total Protein 7.4 5.7-8.2 g/dL Albumin 4.3 3.2-4.8 g/dL Triglycerides Level 84 < 150 mg/dL Cholesterol Level 160 < 200 mg/dL LDL Cholesterol 103 H < 100 mg/dL HDL Cholesterol 45 40-59 mg/dL Amylase Level 82 30-118 U/L Lipase 35 12-53 U/L Thyroid Stimulating Hormone (TSH) 1.29 0.55-4.78 uIU/mL Free Thyroxine (T4) Calculated 1.34 0.89-1.76 ng/dL Hepatitis A IgM Antibody Pending Hepatitis B Surface Antigen Pending Hepatitis B Core IgM Antibody Pending Hepatitis C Antibody Pending Urine Color Light-orange Yellow Urine Clarity Turbid H Clear Urine pH 6.0 5.0-9.0 Urine Specific [place] 1.025 1.001-1.035 Urine Protein Trace H Negative Urine Ketones Negative Negative Urine Blood 3+ H Negative /uL Urine Nitrite Negative Negative Urine Bilirubin Negative Negative Urine Urobilinogen Normal Negative mg/dL Urine Leukocyte Esterase Negative Negative /uL Urine RBC 342 0 - 4 /hpf Urine Microscopic WBC 7 H 0-5 /HPF Urine Squamous Epithelial Cells Few <5 /hpf Urine Bacteria Few H None Seen /hpf Urine Mucus Few None Seen Urine Yeast (Budding) Occasional None Seen /hpf Urine Glucose Normal Normal mg/dL Urine Test Negative Negative Urine Opiates Screen Neg NEGATIVE Urine Fentanyl Screen Neg NEGATIVE Urine Barbiturates Screen Neg NEGATIVE Urine Phencyclidine Screen Neg NEGATIVE Urine Amphetamines Screen Neg NEGATIVE Urine Benzodiazepines Screen Neg NEGATIVE Urine Cocaine Screen Neg NEGATIVE Urine Cannabinoids Screen Neg NEGATIVE Chlamydia trachomatis (INES) Pending Neisseria gonorrhoeae (INES) Pending Current Medications Medications (Trade) Dose Ordered Sig/[place] Route Start Time Stop Time Status Last Admin Albuterol (Ventolin Medneb) 2.5 mg ONCE ONCE NEB 04/11/25 04:45 04/11/25 04:46 DC 04/11/25 04:53 Acetaminophen (Tylenol Tablet) 650 mg ONCE ONCE PO 04/11/25 04:45 04/11/25 04:46 DC 04/11/25 05:21 Al Hydrox/Mg Hydrox/Simethicone (Maalox Plus) 30 ml ONCE ONCE PO 04/11/25 04:45 04/11/25 04:46 DC 04/11/25 05:20 Lidocaine HCl (Xylocaine 2% Viscous) 10 ml ONCE ONCE PO 04/11/25 04:45 04/11/25 04:46 DC 04/11/25 05:20 Potassium Chloride (Klor-Con Tablet) 40 meq ONCE ONCE PO 04/11/25 06:15 04/11/25 06:16 DC 04/11/25 07:02 Sodium Chloride 1,000 ml @ 1,000 mls/hr Q1H ONCE IV 04/11/25 06:15 04/11/25 07:14 DC 04/11/25 07:01 [place] [address] Ph: [phone] DIAGNOSTIC IMAGING Diagnostic Imaging Report : [id number] Signed PATIENT: ODILIA QUINN ACCT: [id number] UNIT: [id number] : 2005 LOC: ER ROOM / BED: / AGE / SEX: 20 / F ADM STATUS: REG ER SERVICE 0422 ORDERING PHYSICIAN: MILAGROS HAMMER MD PROCEDURE(s): CXR1 - CHEST XRAY 1 VIEW REASON: Chest pain ORDER NUMBER(s): [id number], ACCESSION NUMBER(s): [id number] CHEST RADIOGRAPH Indication: Chest pain Technique: Single frontal view of the chest was obtained Comparison: XY CHEST PORTABLE on DOS: 05/18/24 FINDINGS: Lines and Tubes: None Lungs: No focal consolidation. Pleura: No effusion. No pneumothorax. Cardiomediastinal contours: Unremarkable Bones: No acute osseous abnormality. IMPRESSION: 1. No acute cardiopulmonary disease. ATED BY: PEPPER DOMÍNGUEZ MD DICTATED DATE/TIME: 04/11/25449 SIGNED BY: PEPPER DOMÍNGUEZ MD SIGNED DATE/TIME: 04/11/25449 CC: [place] [address] Ph: [phone] DIAGNOSTIC IMAGING Diagnostic Imaging Report : [id number] Signed PATIENT: ODILIA QUINN ALEXXAACCT: [id number] UNIT: [id number] : 2005 LOC: ER ROOM / BED: / AGE / SEX: 20 / F ADM STATUS: REG ER SERVICE 0 ORDERING PHYSICIAN: MILAGROS HAMMER MD PROCEDURE(s): GBUS - GALLBLADDER REASON: Epigastric pain, elevated LFTs ORDER NUMBER(s): [id number], ACCESSION NUMBER(s): [id number] EXAM: US Abdomen Limited, Gallbladder CLINICAL INDICATION: Epigastric pain, elevated LFTs TECHNIQUE: Real-time ultrasound of the right upper quadrant with image documentation. COMPARISON: None FINDINGS: LIVER: Liver measures up to 14.7 cm. GALLBLADDER: Probable gallbladder sludge. Negative Agee's sign was reported by the bookkeeping service sales agent. No gallstones. COMMON BILE DUCT: CBD not visualized. PANCREAS: Unremarkable as visualized. RIGHT KIDNEY: Right kidney measures up to 10.4 cm. OTHER FINDINGS: . IMPRESSION: No convincing evidence of acute cholecystitis. ATED BY: FLORIDALMA GARNICA MD DICTATED DATE/TIME: 04/11/25707 SIGNED BY: FLORIDALMA GARNICA MD SIGNED DATE/TIME: 04/11/25707 CC: Time of 1ST Reevaluation: 04:50 Reevaluation 1ST: Unchanged Patient Education/Counseling: Other (Need for admission) Family Education/Counseling: No Family Present Departure 1 Departure Time of Disposition: 06:00 Impression: Primary Impression: Chest pain Additional Impressions: Elevated LFTs Abnormal urinalysis Disposition: ADMITTED INPATIENT Condition: Stable Comments Patient admitted to hospitalist service for further observation, evaluation and treatment. Critical Care Note Critical Care Time?: No Stability Stability form required: No Heart Score Heart Score: Heart Score Response (Comments) Value History Slightly Suspicious 0 EKG Normal 0 Age <45 0 Risk Factors No known risk factors 0 Troponin Normal limit 0 Total 0 I personally scribed for MILAGROS HAMMER MD ([email or web address]) on 04/11/25 at 04:40. Electronically submitted by Adebayo Elizondo ([email or web address]). I personally scribed for MILAGROS HAMMER MD ([email or web address]) on 04/11/25 at 04:40. Electronically submitted by Adebayo Elizondo ([email or web address]). I personally scribed for MILAGROS HAMMER MD ([email or web address]) on 04/11/25 at 05:36. Electronically submitted by Adebayo Elizondo ([email or web address]). I personally scribed for MILAGROS HAMMER MD ([email or web address]) on 04/11/25 at 05:38. Electronically submitted by Adebayo Elizondo ([email or web address]). I personally scribed for MILAGROS HAMMER MD ([email or web address]) on 04/11/25 at 07:17. Electronically submitted by Anil Griggs ([email or web address]). MILAGROS HAMMER MD Apr 11, 2025 04:40
[2025-04-11] MEDS: ALBUTEROL SULF 2.5 MG/0.5ML(0.5%) NEB SOLN NEB ONE (04:53)
--- NOTE | 2025-04-11 04:53 | DVH ---
CHEST RADIOGRAPH Indication: Chest pain Technique: Single frontal view of the chest was obtained Comparison: XY CHEST PORTABLE on DOS: 05/18/24 FINDINGS: Lines and Tubes: None Lungs: No focal consolidation. Pleura: No effusion. No pneumothorax. Cardiomediastinal contours: Unremarkable Bones: No acute osseous abnormality. IMPRESSION: 1. No acute cardiopulmonary disease.
[2025-04-11 05:20] LABS: Urine Bacteria FEW /hpf (None Seen); Urine Blood 3+ /uL (Negative); Urine Budding Yeast OCCASIONAL /hpf (None Seen); Urine Clarity Turbid (Clear); Urine Color Light-Orange (Yellow); Urine Mucus FEW (None Seen); Urine Protein, UAD TRACE (Negative); Urine Specific Gravity 1.025 (1.001-1.035); Urine Squamous Epithelial Cell FEW /hpf (<5); Urine Urobilinogen Normal (Negative); Urine WBC 7 /HPF (0-5)
[2025-04-11] MEDS: LIDOCAINE VISCOUS 2% 15ML UD PO ONE (05:20)
[2025-04-11] MEDS: MAALOX PLUS or MAALOX 30 ML PO ONE (05:20)
[2025-04-11] MEDS: ACETAMINOPHEN 325 MG TAB PO ONE (05:21)
[2025-04-11 05:39] LABS: Basophils # (auto) 0 10 ^3/uL (0-0.2); Basophils % (auto) 0.4 % (0.0-2.0); Eosinophils # (auto) 0.1 10 ^3/uL (0-0.8); Eosinophils % (auto) 0.6 % (0.0-7.0); Hematocrit 38.1 % (36.0-46.0); Hemoglobin 12.8 g/dL (12.2-16.2); Lymphocytes % (auto) 19.4 % (10.0-50.0); Mean Corpuscular Hemoglobin 26.3 pg (28.0-32.0); Mean Corpuscular Hgb Conc. 33.7 g/dL (32.0-36.0); Mean Corpuscular Volume 78.3 fL (80.0-100.0); Monocytes # (auto) 0.7 10 ^3/uL (0-1.3); Monocytes % (auto) 7.1 % (0.0-12.0); Neutrophils # (auto) 7.4 10 ^3/uL (1.6-8.6); Neutrophils % (auto) 72.5 % (37.0-80.0); Nucleated Red Blood Cells % 0.1 %; Platelet Count (auto) 346 10^3/uL (140-450); Red Blood Cells 4.87 10^6/uL (4.0-5.20); Red Cell Distribution Width 14.8 % (11.8-14.3); White Blood Cell 10.3 10^3/uL (4.4-10.8)
[2025-04-11 05:53] LABS: Albumin 4.3 g/dL (3.2-4.8); Alkaline Phosphatase 105 U/L (46-116); Anion Gap 12 (5-15); BUN/Creatinine Ratio 11.6 (10.0-20.0); Bilirubin, Total 0.7 mg/dL (0.2-1.0); Blood Urea Nitrogen 10 mg/dL (9-23); Calcium 9.2 mg/dL (8.7-10.4); Carbon Dioxide 24 mmol/L (20-31); Chloride 106 mmol/L (98-107); Sodium 142 mmol/L (136-145); Total Protein 7.4 g/dL (5.7-8.2)
[2025-04-11 05:54] LABS: Alanine Aminotransferase 109 U/L (7-40); Aspartate Aminotransferase 243 U/L (13-40); Glucose 115 mg/dL (74-106); Potassium 3.2 mmol/L (3.5-5.1)
--- NOTE | 2025-04-11 06:07 | ECG ---
[facility] Test Date: 2025-04-11 Test Time: 04:18:18 Pat Name: ODILIA QUINN Department: ED Room: [address] [place] [address] Gender: F Applications Consultant: [email or web address] : 2005 Requested By: MILAGROS HAMMER Order Number: [id number] Reading MD: Christian Weller Measurements Intervals [place] Rate: 99 P: 42 [place]: 156 QRS: 68 QRSD: 78 T: 4 QT: 351 QTc: 451 Interpretive Statements Sinus rhythm Borderline T abnormalities, anterior leads Electronically Signed On 04-12-2025 9:27:49 PDT by Christian Weller Please click the below link to view image of tracing.
[2025-04-11] MEDS: SODIUM CHLORIDE 0.9% 1,000 ML IV ONE (07:01)
[2025-04-11] MEDS: POTASSIUM CHL 20 Meq TABLET PO ONE ×2 (07:02→10:33)
--- NOTE | 2025-04-11 07:12 | DVH ---
EXAM: US Abdomen Limited, Gallbladder CLINICAL INDICATION: Epigastric pain, elevated LFTs TECHNIQUE: Real-time ultrasound of the right upper quadrant with image documentation. COMPARISON: None FINDINGS: LIVER: Liver measures up to 14.7 cm. GALLBLADDER: Probable gallbladder sludge. Negative Agee's sign was reported by the scada operator. No gallstones. COMMON BILE DUCT: CBD not visualized. PANCREAS: Unremarkable as visualized. RIGHT KIDNEY: Right kidney measures up to 10.4 cm. OTHER FINDINGS: . IMPRESSION: No convincing evidence of acute cholecystitis.
[2025-04-11] MEDS ORDERED: NITROGLYCERIN 0.4 MG SL TAB SL PRN ×2 (08:15)
[2025-04-11] MEDS ORDERED: MORPHINE SULFATE INJ 2 MG/ml SYRG IV PRN (08:15)
[2025-04-11] MEDS ORDERED: MORPHINE SULFATE 4 MG/ML SYR/VIAL IV PRN (08:15)
[2025-04-11] MEDS ORDERED: ONDANSETRON HCL 4 MG/2 ML VIAL IV PRN (08:15)
[2025-04-11] MEDS ORDERED: ERGO1CAP12 PO (08:34)
--- NOTE | 2025-04-11 08:40 | DVHHP2 ---
History of Present Illness Reason for Visit: Chest pain History of Present Illness Mateus Chamorro is a 20-year-old female with past medical history of asthma, anxiety, cholelithiasis, and UTI who presents to the ED with chest pain that started around 3:00 a.m. this morning. She reports sweats and shaking during the time. Upon examination patient states that her pain is 8/10 in the epigastric area describes it as "pain" and constant. Reports that there are no triggering or alleviating factors. She also reports that this is the 1st time this has happened. Patient reports that she occasionally drinks but does not use drugs or smoke. Patient denies any shortness of breath, fever, chills, lightheadedness, weakness, dizziness, recent trauma or injury, recent travels, recent sick contacts, recent ingestion of spoiled food, abdominal pain, nausea, vomiting, or diarrhea. Pulmonary: Asthma Hepatobiliary: Cholelithiasis Psych: Anxiety Renal/: UTI Past Surgical History: None Family History: Cancer, DM, Other Smoke: No ALCOHOL: occassional Drugs: None Lives: with Family Domestic Violence: Neg Review of Systems Cardiovascular: Chest Pain Allergies: Coded Allergies: Penicillin G (Verified Allergy, Severe, 06/28/11) Penicillins (Verified Allergy, Unknown, 01/26/25) Medications Current Medications Medications Dose Ordered Sig/Devon Route Start Time Stop Time Status Last Admin Dose Admin Aspirin 81 mg DAILY PO 04/11/25 10:00 Atorvastatin Calcium 40 mg HS PO 04/11/25 22:00 Morphine Sulfate 2 mg Q30MP PRN IV 04/11/25 08:15 Acetaminophen 650 mg Q6HP PRN PO 04/11/25 08:15 Nitroglycerin 0.4 mg Q5MINP PRN SL 04/11/25 08:15 Ondansetron HCl 4 mg Q4HP PRN IV 04/11/25 08:15 Patient Own Medication 1 tab TID PO 04/11/25 14:00 UNV Ergocalciferol 50,000 unit QWEEKLY PO 04/11/25 08:45 UNV Exam Vital Signs Vital Signs Date Time Temp Pulse Resp B/P (MAP) Pulse Ox O2 Delivery O2 Flow Rate FiO2 04/11/25 08:00 98.7 90 18 132/80 (97) 99 98.7 04/11/25 05:15 Room Air* 0 21 General Appearance: Alert, Oriented X3, Cooperative, No acute distress HEENT: Atraumatic, PERRLA, EOMI, Mucous membr. moist/pink Respiratory: Clear to auscultation, Normal air movement Cardiovascular: Regular rate, Normal S1, Normal S2 Abdominal: Soft Extremities: No clubbing, No cyanosis, No edema Skin: No significant lesion Neuro: Normal gait, Normal speech, Strength at 5/5 X4 ext, Normal tone, Sensation intact Psych/Mental Status: Mental status NL, Mood NL Labs/Xrays Labs Test 04/11/25 08:32 04/11/25 05:20 04/11/25 04:30 Range/Units White Blood Count 10.3 4.4-10.8 10^3/uL Red Blood Count 4.87 4.0-5.20 10^6/uL Hemoglobin 12.8 12.2-16.2 g/dL Hematocrit 38.1 36.0-46.0 % Mean Corpuscular Volume 78.3 L 80.0-100.0 fL Mean Corpuscular Hemoglobin 26.3 L 28.0-32.0 pg Mean Corpuscular Hemoglobin Concent 33.7 32.0-36.0 g/dL Red Cell Distribution Width 14.8 H 11.8-14.3 % Platelet Count 346 140-450 10^3/uL Mean Platelet Volume 7.5 6.9-10.8 fL Neutrophils (%) (Auto) 72.5 37.0-80.0 % Lymphocytes (%) (Auto) 19.4 10.0-50.0 % Monocytes (%) (Auto) 7.1 0.0-12.0 % Eosinophils (%) (Auto) 0.6 0.0-7.0 % Basophils (%) (Auto) 0.4 0.0-2.0 % Neutrophils # (Auto) 7.4 1.6-8.6 10 ^3/uL Lymphocytes # (Auto) 2.0 0.4-5.4 10 ^3/uL Monocytes # (Auto) 0.7 0-1.3 10 ^3/uL Eosinophils # (Auto) 0.1 0-0.8 10 ^3/uL Basophils # (Auto) 0 0-0.2 10 ^3/uL Nucleated Red Blood Cells 0.1 % Sodium Level 142 136-145 mmol/L Potassium Level 3.2 L 3.5-5.1 mmol/L Chloride Level 106 98-107 mmol/L Carbon Dioxide Level 24 20-31 mmol/L Anion Gap 12 5-15 Blood Urea Nitrogen 10 9-23 mg/dL Creatinine 0.86 0.550-1.02 mg/dL Glomerular Filtration Rate Calc 99 >90 mL/min BUN/Creatinine Ratio 11.6 10.0-20.0 Serum Glucose 115 H 74-106 mg/dL Calcium Level 9.2 8.7-10.4 mg/dL Total Bilirubin 0.7 0.2-1.0 mg/dL Aspartate Amino Transferase (AST) 243 H 13-40 U/L Alanine Aminotransferase (ALT) 109 H 7-40 U/L Alkaline Phosphatase 105 46-116 U/L Total Protein 7.4 5.7-8.2 g/dL Albumin 4.3 3.2-4.8 g/dL Lipase 35 12-53 U/L Urine Color Light-orange Yellow Urine Clarity Turbid H Clear Urine pH 6.0 5.0-9.0 Urine Specific [place] 1.025 1.001-1.035 Urine Protein Trace H Negative Urine Ketones Negative Negative Urine Blood 3+ H Negative /uL Urine Nitrite Negative Negative Urine Bilirubin Negative Negative Urine Urobilinogen Normal Negative mg/dL Urine Leukocyte Esterase Negative Negative /uL Urine RBC 342 0 - 4 /hpf Urine Microscopic WBC 7 H 0-5 /HPF Urine Squamous Epithelial Cells Few <5 /hpf Urine Bacteria Few H None Seen /hpf Urine Mucus Few None Seen Urine Yeast (Budding) Occasional None Seen /hpf Urine Glucose Normal Normal mg/dL Urine Test Negative Negative EXAM: US Abdomen Limited, Gallbladder CLINICAL INDICATION: Epigastric pain, elevated LFTs TECHNIQUE: Real-time ultrasound of the right upper quadrant with image documentation. COMPARISON: None FINDINGS: LIVER: Liver measures up to 14.7 cm. GALLBLADDER: Probable gallbladder sludge. Negative Agee's sign was reported by the build manager. No gallstones. COMMON BILE DUCT: CBD not visualized. PANCREAS: Unremarkable as visualized. RIGHT KIDNEY: Right kidney measures up to 10.4 cm. OTHER FINDINGS: . IMPRESSION: No convincing evidence of acute cholecystitis. CHEST RADIOGRAPH Indication: Chest pain Technique: Single frontal view of the chest was obtained Comparison: XY CHEST PORTABLE on DOS: 05/18/24 FINDINGS: Lines and Tubes: None Lungs: No focal consolidation. Pleura: No effusion. No pneumothorax. Cardiomediastinal contours: Unremarkable Bones: No acute osseous abnormality. IMPRESSION: 1. No acute cardiopulmonary disease. Assessment/Plan Assessment/Plan Assessment Chest pain rule out ACS Hypokalemia Transaminitis History of asthma History of anxiety History of cholelithiasis History of UTI Plan Admit to tele Replete lytes Ultrasound gallbladder noted NS given ED Antiemetics Antipyretics Duo nebs Placed noted Urine culture Chlamydia GC Troponin HCG Chest x-ray noted EKG UA Amylase UDS Echo ordered Aspirin + statin Lipid panel Free T4 Hemoglobin A1c Hepatitis panel Lipid panel CK TSH Diet Home medications reconciled DVT prophylaxis-not indicated patient ambulating PUD prophylaxis-not indicated no history of GERD or GI bleed Discussed plan of care with patient and nurse Plan discussed with: Patient My Orders Orders - IDRIS LOPEZ Procedure Category Date Status Time Admit ADMIT 04/11/25 Transmitted 08:11 Code Status CODE 04/11/25 Transmitted 08:11 Vital Signs JANETT 04/11/25 In Process 08:11 Braker Passenger Train JANETT 04/11/25 In Process 08:11 Cardiac DIET 04/11/25 Transmitted Diet-2gna,Lofat,Lochol Breakfast Aspirin Tablet PHA 04/11/25 In Process 10:00 Atorvastatin (Lipitor) PHA 04/11/25 In Process 22:00 Morphine Sulfate PHA 04/11/25 In Process Injection 08:15 Acetaminophen Tablet PHA 04/11/25 In Process (Tylenol Tablet) 08:15 Complete Blood Count LAB 04/12/25 Verified 04:00 Basic Metabolic Panel LAB 04/12/25 Verified 04:00 Magnesium LAB 04/12/25 Verified 04:00 Amylase LAB 04/12/25 Verified 04:00 Echo 2d Mode Cardiac US 04/11/25 Logged DOP 08:11 Nitroglycerin PHA 04/11/25 In Process Sublingual (Ntrostat 08:15 Ondansetron Hcl PHA 04/11/25 In Process (Zofran) 08:15 Electrocardigram EKG 04/12/25 Logged 04:00 Cardiac JANETT 04/11/25 In Process Rehabilitation - Outpa Stat Ekg For Chest JANETT 04/11/25 In Process Pain 08:11 Notify Of Changes JANETT 04/11/25 In Process From Base 08:11 Online Retailer For JANETT 04/11/25 In Process 24 Hours 08:11 Emergency Dysrhythmia JANETT 04/11/25 In Process Protocol 08:11 Rhythm Strips Once JANETT 04/11/25 In Process Every Shift 08:11 Oxygen By Nasal RT 04/11/25 Transmitted Cannula 08:11 Magnesium Sulfate PHA 04/11/25 In Process 1gm/100ml 08:15 Magnesium LAB 04/11/25 In Process 08:11 Thyroid Stimulating LAB 04/11/25 In Process Hormone 08:11 Drug Screen LAB 04/11/25 In Process 08:11 Hemoglobin A1c LAB 04/11/25 In Process 08:11 Lipid Panel LAB 04/11/25 In Process 08:11 Free T4 (Free LAB 04/11/25 In Process Thyroxine) 08:11 Amylase LAB 04/11/25 In Process 05:20 (Nf) Hydroxyzine Hcl PHA 04/11/25 Logged 14:00 Ergocalciferol PHA 04/11/25 Logged (Vitamin D 50,000 08:45 Acute Hepatitis Panel LAB 04/11/25 Logged 08:34 Thyroid Stimulating LAB 04/11/25 Transmitted Hormone 08:38 Creatine Kinase LAB 04/11/25 Transmitted 08:38 Date of Service: Apr 11, 2025 Billing Provider: IDRIS LOPEZ Common Visit Codes: [id number] INP/OBS CARE (HIGH) IDRIS LOPEZ Apr 11, 2025 08:40
[2025-04-11] MEDS ORDERED: ERGOCALCIFEROL 50,000 UNIT(1.25MG) CAP PO SCH (08:45)
[2025-04-11] MEDS: ASPirin 81 mg TAB PO SCH (10:34)
[2025-04-11] MEDS: MAGNESIUM SULFATE 1GM/100ML 100 ML IV ONE (10:34)
--- NOTE | 2025-04-11 13:26 | DVHPN2 ---
Subjective 20-year-old female with a history of asthma comes with chief complaint of chest pain The pain is sharp located in the epigastric area and lower chest in his center She also had some wheezing and shortness of breaths this morning She uses a nebulizer and albuterol at home for an asthma attack and she thinks she had an asthma attack this morning Changes from previous H/P or p: Changes Objective Vitals Vital Signs Date Time Temp Pulse Resp B/P (MAP) Pulse Ox O2 Delivery O2 Flow Rate FiO2 04/11/25 08:00 98.7 90 18 132/80 (97) 99 98.7 04/11/25 05:15 Room Air* 0 21 General Appearance: Alert, Oriented X3, Cooperative, No acute distress Lungs: Other (Bilateral diffuse wheezing) Cardiovascular: Regular rate, Normal S1, Normal S2, No murmurs Abdomen: Normal bowel sounds, Soft, No tenderness Extremities: No edema Medications Current Medications Medications Dose Ordered Sig/Devon Route Start Time Stop Time Status Last Admin Dose Admin Aspirin 81 mg DAILY PO 04/11/25 10:00 04/11/25 10:34 81 MG Atorvastatin Calcium 40 mg HS PO 04/11/25 22:00 Morphine Sulfate 2 mg Q30MP PRN IV 04/11/25 08:15 Acetaminophen 650 mg Q6HP PRN PO 04/11/25 08:15 Nitroglycerin 0.4 mg Q5MINP PRN SL 04/11/25 08:15 Ondansetron HCl 4 mg Q4HP PRN IV 04/11/25 08:15 Hydroxyzine Pamoate 25 mg TID PO 04/11/25 14:00 Future Hold Ergocalciferol 50,000 unit QWEEKLY PO 04/11/25 08:45 Hold Laboratory Results Laboratory Tests 04/11/25 05:20 Chemistry Test 04/11/25 05:20 Albumin 4.3 g/dL (3.2-4.8) Calcium Level 9.2 mg/dL (8.7-10.4) Magnesium Level 2.0 mg/dL (1.6-2.6) Total Protein 7.4 g/dL (5.7-8.2) Lipid panel Test 04/11/25 05:20 Cholesterol Level Pending HDL Cholesterol Pending Lipase 35 U/L (12-53) Triglycerides Level Pending LFT Test 04/11/25 05:20 Alanine Aminotransferase (ALT) 109 U/L (7-40) H Alkaline Phosphatase 105 U/L (46-116) Aspartate Amino Transferase (AST) 243 U/L (13-40) H Total Bilirubin 0.7 mg/dL (0.2-1.0) HgA1c, TSH Test 04/11/25 05:20 Hemoglobin A1c 5.4 % A1C (<5.7) Thyroid Stimulating Hormone (TSH) 1.29 uIU/mL (0.55-4.78) Urinalysis Test 04/11/25 04:30 Urine Color Light-orange (Yellow) Urine Clarity Turbid (Clear) H Urine pH 6.0 (5.0-9.0) Urine Specific [place] 1.025 (1.001-1.035) Urine Protein Trace (Negative) H Urine Ketones Negative (Negative) Urine Blood 3+ /uL (Negative) H Urine Nitrite Negative (Negative) Urine Bilirubin Negative (Negative) Urine Urobilinogen Normal mg/dL (Negative) Urine Leukocyte Esterase Negative /uL (Negative) Urine RBC 342 /hpf (0 - 4) Urine Microscopic WBC 7 /HPF (0-5) H Urine Squamous Epithelial Cells Few /hpf (<5) Urine Bacteria Few /hpf (None Seen) H Urine Mucus Few (None Seen) Urine Yeast (Budding) Occasional /hpf (None Urine Glucose Normal mg/dL (Normal) Urine Test Negative (Negative) Assessment/Plan Assessment/Plan Chest pain most likely due to asthma Acute asthma exacerbation Acute non hypoxic respiratory failure due to asthma Hypokalemia Elevated liver function tests Gallbladder sludge Plan Start IV steroids IV Zithromax Oxygen as needed Med neb treatments as needed She was given magnesium IV and breathing treatment with albuterol Gallbladder shows gallbladder sludge but no acute cholecystitis Replace potassium as needed Monitor the patient closely Full code The rest of the management will depend on the hospital course Advance directives discussed for 16 minute Plan discussed with: Patient Date of Service: Apr 11, 2025 Billing Provider: VIOLET MARES MD Common Visit Codes: [id number] INP/OBS CARE(HIGH) Secondary Visit Codes: [id number] CARE PLAN 30 MINUTES VIOLET MARES MD Apr 11, 2025 13:26
--- NOTE | 2025-04-11 13:48 | DVHSR ---
APPROVED REPORT EXAM: Two-dimensional and M-mode echocardiogram with Doppler and color Doppler. Blood Pressure: 136/81 mmHg INDICATION Chest Pain RISK FACTORS Height: 63, Weight: 260 DIMENSIONS LVDd4.9 (3.8-5.7cm)LA (2D)3.9 (1.9-4.0cm)Aortic Root2.9 (2.0-3.7cm) LVDs3.1 (2.5-4.0cm)LA (MM) (1.9-4.0cm)Aortic Cusp Exc2.0 (1.5-2.0cm) EF (%) 68.0 (55-70%)Rt. Atrium3.9 (1.9-4.0cm)Asc. Aorta cm IVSd1.0 (0.7-1.1cm)RV (D) (1.8-2.4cm) PWd1.0 (0.7-1.1cm) Mitral Valve MitralMitral Stenosis E wave1.11m/sMV Mean GR.mmHg A wave0.45m/sMV Peak GR.mmHg E/A ratio2.52D MVAcm2 DECEL [id number] 1/2 [id number] IVRTmsDop MVA3.33cm2 Aortic Valve Aortic ValveAortic Stenosis V10.91m/Marvin Mean GR.5mmHg V21.41m/Marvin Peak GR.8mmHg LVOT Diameter2.0 (1.8-2.4cm)Doppler AVA2.03cm2 Pulmonic Valve V21.33m/s Tricuspid Valve TR Velocity2.19m/s [id number] Conclusion lvef 70% normal rv function normal atria no severe valve abnormaliteis noted
[2025-04-11] MEDS ORDERED: hydrOXYzine 25 MG TAB or CAP PO SCH (14:00)
[2025-04-11] MEDS: methylPREDNISolone SOD SUCC 125 MG/2 ML VL IV ONE (14:24)
[2025-04-11] MEDS: AZITHROMYCIN 500MG/ 250ML 250 ML IV ONE (14:25)
[2025-04-11 14:54] LABS: Amphetamine Screen, Urine Neg (NEGATIVE); Barbiturate Scree,Urine Neg (NEGATIVE); Benzodiazephine Screen, Urine Neg (NEGATIVE); Cannabinoid Screen, Urine Neg (NEGATIVE); Cocaine Screen, Urine Neg (NEGATIVE); Opiate Scree,Urine Neg (NEGATIVE); Phencyclidine Screen, Urine Neg (NEGATIVE)
[2025-04-11] MEDS: ATORVASTATIN 20 MG TAB PO SCH (21:32)
[2025-04-11] MEDS: methylPREDNISolone SOD SUCC 40 MG/ML VL IV SCH (21:32)
[2025-04-11] MEDS: ACETAMINOPHEN 325 MG TAB PO PRN (21:47)
[2025-04-12] VITALS (8 sets, daily range): BP systolic 117–129; BP diastolic 73–77; PULSE 72–93; RESP 17–20; TEMP 97.9–98.3; O2SAT 99–100
[2025-04-12 07:13] LABS: Basophils # (auto) 0 10 ^3/uL (0-0.2); Eosinophils # (auto) 0 10 ^3/uL (0-0.8); Hemoglobin 13.5 g/dL (12.2-16.2); Monocytes # (auto) 0.5 10 ^3/uL (0-1.3); Neutrophils # (auto) 10.8 10 ^3/uL (1.6-8.6)
[2025-04-12 07:16] LABS: Basophils % (auto) 0.1 % (0.0-2.0); Hematocrit 41.3 % (36.0-46.0); Lymphocytes # (auto) 0.8 10 ^3/uL (0.4-5.4); Lymphocytes % (auto) 6.8 % (10.0-50.0); Mean Corpuscular Hemoglobin 25.7 pg (28.0-32.0); Mean Corpuscular Hgb Conc. 32.6 g/dL (32.0-36.0); Mean Corpuscular Volume 78.8 fL (80.0-100.0); Monocytes % (auto) 4.2 % (0.0-12.0); Neutrophils % (auto) 88.9 % (37.0-80.0); Platelet Count (auto) 381 10^3/uL (140-450); Red Blood Cells 5.24 10^6/uL (4.0-5.20); Red Cell Distribution Width 15.3 % (11.8-14.3); White Blood Cell 12.1 10^3/uL (4.4-10.8)
[2025-04-12 07:21] LABS: Anion Gap 13 (5-15); BUN/Creatinine Ratio 13.6 (10.0-20.0); Blood Urea Nitrogen 11 mg/dL (9-23); Calcium 9.7 mg/dL (8.7-10.4); Chloride 105 mmol/L (98-107); Magnesium 2.1 mg/dL (1.6-2.6); Potassium 4.1 mmol/L (3.5-5.1); Sodium 138 mmol/L (136-145); Total Protein 7.9 g/dL (5.7-8.2)
[2025-04-12 07:22] LABS: Albumin 4.4 g/dL (3.2-4.8); Amylase 77 U/L (30-118); Bilirubin, Total 0.4 mg/dL (0.2-1.0)
[2025-04-12 07:29] LABS: Alanine Aminotransferase 309 U/L (7-40); Alkaline Phosphatase 134 U/L (46-116); Aspartate Aminotransferase 132 U/L (<34); Carbon Dioxide 20 mmol/L (20-31); Glucose 139 mg/dL (74-106)
[2025-04-12] MEDS: ALBUTEROL SULF 2.5 MG/0.5ML(0.5%) NEB SOLN NEB PRN (09:48)
[2025-04-12] MEDS: AZITHROMYCIN 500MG/ 250ML 250 ML IV SCH (09:58)
[2025-04-12 11:40] LABS: Hepatitis A Ab IgM Negative; Hepatitis B Core IgM Negative (Negative); Hepatitis B Surface Antigen Negative (Negative); Hepatitis C Antibody Negative (Negative)
--- NOTE | 2025-04-12 15:27 | DVHDS2 ---
Discharge Summary Date of Admission Apr 11, 2025 at 08:11 Date of Discharge: Apr 12, 2025 Labs/Diagnostic Data: Laboratory Results Test 04/12/25 05:26 04/11/25 08:32 04/11/25 05:20 04/11/25 04:30 White Blood Count 12.1 10^3/uL (4.4-10.8) Red Blood Count 5.24 10^6/uL (4.0-5.20) Hemoglobin 13.5 g/dL (12.2-16.2) Hematocrit 41.3 % (36.0-46.0) Mean Corpuscular Volume 78.8 fL (80.0-100.0) Mean Corpuscular Hemoglobin 25.7 pg (28.0-32.0) Mean Corpuscular Hemoglobin Concent 32.6 g/dL (32.0-36.0) Red Cell Distribution Width 15.3 % (11.8-14.3) Platelet Count 381 10^3/uL (140-450) Mean Platelet Volume 8.1 fL (6.9-10.8) Neutrophils (%) (Auto) 88.9 % (37.0-80.0) Lymphocytes (%) (Auto) 6.8 % (10.0-50.0) Monocytes (%) (Auto) 4.2 % (0.0-12.0) Eosinophils (%) (Auto) 0.0 % (0.0-7.0) Basophils (%) (Auto) 0.1 % (0.0-2.0) Neutrophils # (Auto) 10.8 10 ^3/uL (1.6-8.6) Lymphocytes # (Auto) 0.8 10 ^3/uL (0.4-5.4) Monocytes # (Auto) 0.5 10 ^3/uL (0-1.3) Eosinophils # (Auto) 0 10 ^3/uL (0-0.8) Basophils # (Auto) 0 10 ^3/uL (0-0.2) Nucleated Red Blood Cells 0.0 % Sodium Level 138 mmol/L (136-145) Potassium Level 4.1 mmol/L (3.5-5.1) Chloride Level 105 mmol/L (98-107) Carbon Dioxide Level 20 mmol/L (20-31) Anion Gap 13 (5-15) Blood Urea Nitrogen 11 mg/dL (9-23) Creatinine 0.81 mg/dL (0.550-1.02) Glomerular Filtration Rate Calc 107 mL/min (>90) BUN/Creatinine Ratio 13.6 (10.0-20.0) Serum Glucose 139 mg/dL (74-106) Calcium Level 9.7 mg/dL (8.7-10.4) Magnesium Level 2.1 mg/dL (1.6-2.6) Total Bilirubin 0.4 mg/dL (0.2-1.0) Aspartate Amino Transferase (AST) 132 U/L (<34) Alanine Aminotransferase (ALT) 309 U/L (7-40) Alkaline Phosphatase 134 U/L (46-116) Total Protein 7.9 g/dL (5.7-8.2) Albumin 4.4 g/dL (3.2-4.8) Amylase Level 77 U/L (30-118) Troponin I High Sensitivity < 3 ng/L (</=34) Hemoglobin A1c 5.4 % A1C (<5.7) Creatine Kinase 84 U/L (34-145) Triglycerides Level 84 mg/dL (< 150) Cholesterol Level 160 mg/dL (< 200) LDL Cholesterol 103 mg/dL (< 100) HDL Cholesterol 45 mg/dL (40-59) Lipase 35 U/L (12-53) Thyroid Stimulating Hormone (TSH) 1.29 uIU/mL (0.55-4.78) Free Thyroxine (T4) Calculated 1.34 ng/dL (0.89-1.76) Hepatitis A IgM Antibody Negative Hepatitis B Surface Antigen Negative (Negative) Hepatitis B Core IgM Antibody Negative (Negative) Hepatitis C Antibody Negative (Negative) Urine Color Light-orange (Yellow) Urine Clarity Turbid (Clear) Urine pH 6.0 (5.0-9.0) Urine Specific [place] 1.025 (1.001-1.035) Urine Protein Trace (Negative) Urine Ketones Negative (Negative) Urine Blood 3+ /uL (Negative) Urine Nitrite Negative (Negative) Urine Bilirubin Negative (Negative) Urine Urobilinogen Normal mg/dL (Negative) Urine Leukocyte Esterase Negative /uL (Negative) Urine RBC 342 /hpf (0 - 4) Urine Microscopic WBC 7 /HPF (0-5) Urine Squamous Epithelial Cells Few /hpf (<5) Urine Bacteria Few /hpf (None Seen) Urine Mucus Few (None Seen) Urine Yeast (Budding) Occasional /hpf (None Urine Glucose Normal mg/dL (Normal) Urine Test Negative (Negative) Urine Opiates Screen Neg (NEGATIVE) Urine Fentanyl Screen Neg (NEGATIVE) Urine Barbiturates Screen Neg (NEGATIVE) Urine Phencyclidine Screen Neg (NEGATIVE) Urine Amphetamines Screen Neg (NEGATIVE) Urine Benzodiazepines Screen Neg (NEGATIVE) Urine Cocaine Screen Neg (NEGATIVE) Urine Cannabinoids Screen Neg (NEGATIVE) Other Laboratory Tests 04/12/25 05:26 Brief Hx & Hospital Course: Final diagnoses: Chest pain most likely due to asthma Acute asthma exacerbation Acute non hypoxic respiratory failure due to asthma Hypokalemia Elevated liver function tests Gallbladder sludge She was admitted for chest pain She had wheezing She was given IV steroids, med-nebs, O2 Today she felt better LFTs were high She said she was taking large amount of Tylenol and Motrin lately, she does not take statins DC home DC Tylenol Take prednisone that she has at home x 5 days F/U PCP PATRICIA Condition at Discharge: Stable Final Diagnosis/Problems List CHEST PAIN, LIKELY DUE TO ASTHMA ACUTE ASTHMA EXACERBATION ACUTE NON-HYPOXIC RESPIRATORY FAILURE ELEVATED LIVER ENZYMES GALLBLADDER SLUDGE Discharge Disposition: Home SNF Discharge Will this Physician continue t: No Discharge Instruct/Medications Diet: Regular Activity: No Restrictions, As Tolerated Follow Up/Referral: PCP PATRICIA Medications: Stop Tylenol Continue other home meds Prednisoe x 5 days (already has at home) Discharge Statement: "Patient was advised to return to the ER or call 911 if any headaches, dizziness, shortness of breath, chest pain, abdominal pain, bleeding, fevers, or worsening of medical condition. Patient was counseled about treatment plan, medications, possible side effects, patientverbalized understanding. All questions were answered to the best of my ability. This discharge took greater then 30 minutes in planning, reviewing documentation, counseling the patient, and discussing with other team members." ASSESSMENT ASSESSMENT Assessment CHEST PAIN, LIKELY DUE TO ASTHMA ACUTE ASTHMA EXACERBATION ACUTE NON-HYPOXIC RESPIRATORY FAILURE ELEVATED LIVER ENZYMES GALLBLADDER SLUDGE Date of Service: Apr 12, 2025 Billing Provider: VIOLET MARES MD Common Visit Codes: 88815-UZD/OBS DISCH DAY >30min VIOLET MARES MD Apr 12, 2025 15:27
[2025-04-12 23:07] LABS: Chlamydia Trachomatis, NAA Negative (Negative); Neisseria gonorrhoeae, NAA Negative (Negative)
== END 2025-04-12 13:51 | disposition home or self-care (01) | DRG 133 ==
LOC: ER 04:11 → OVERFLOW 08:11 → TELE-EAST 15:14
PROVIDERS: ADMIT Internal Medicine Geriatric Medicine; ATTEND Internal Medicine Geriatric Medicine
DX: J96.00 Acute respiratory failure, unspecified whether with hypoxia or hypercapnia (principal); J45.901 Unspecified asthma with (acute) exacerbation; E87.6 Hypokalemia; F41.9 Anxiety disorder, unspecified; R74.01 Elevation of levels of liver transaminase levels; K82.8 Other specified diseases of gallbladder; Z88.0 Allergy status to penicillin; Z79.2 Long term (current) use of antibiotics; Z79.1 Long term (current) use of non-steroidal anti-inflammatories (NSAID); Z79.899 Other long term (current) drug therapy; Z83.3 Family history of diabetes mellitus; Z87.440 Personal history of urinary (tract) infections
CPT/HCPCS: 36415; 71045; 76705; 80053; 80061; 80074; 80307; 81001; 81025; 82150; 82550; 83036; 83690; 83735; 84439; 84443; 84484; 85025; 87086; 93005; 93306; 94640; G0378

== ENCOUNTER 2025-06-16 10:25 | Emergency (ER) | payer MEDICAID ==
[~2025-06-16] VITALS: Ht 162.6 cm; Wt 121.5 kg
[~2025-06-16 10:25] MED LIST changes: -ACET500T58 PO; -AZIT-185 PO; -AZIT-43 PO; -BACDST PO; -CEFD300C2 PO; -CEPH500C PO; -CIPR-173 PO; +ERGO1CAP12 PO; -FLUC150T38 PO; -FLUC150T47 PO; -FLUC200T PO; -IBUP-1456 PO; -MET500T PO; -NITR-52 PO; -NITR-87 PO; -PRED20TA2 PO; -TAMIFLU PO
--- NOTE | 2025-06-16 11:17 | ED.PDOC ---
History of Present Illness HPI Comments 20 y.o female with PMHx of asthma, presents to the ED for a chief complaint of body pain associated with abdominal pain that started one week ago. Patient reports new onset of pain, states worsens on palpation and when placing clothes on, described as a burning sensation. Patient also reports upper abdominal pain that is non radiating and constant. She denies any nausea, vomiting, diarrhea, fever, chills. Chief Complaint: Body Pain Time Seen by MD: 11:01 Primary Care Provider: kun Reviewed Notes: Nurses Notes, Medications, Allergies Allergies: Coded Allergies: Penicillin G (Verified Allergy, Severe, 06/28/11) Penicillins (Verified Allergy, Unknown, 01/26/25) Home Meds Active Scripts Hydroxyzine Hcl (Hydroxyzine Hcl) 25 Mg Tab, 1 TAB PO TID, #30 TAB Prov:ALEX GUTIÉRREZ MD 03/03/24 Albuterol Sulfate (VENTOLIN MDI) 90 Mcg Ih, 90 MCG IN Q4HR PRN, #1 INH Prov:JUJU FREEMAN SECRETARIAL TEACHER 10/05/23 Promethazine-Dm (Promethazine Dm 6.25-15 mg/5Ml) 1 Anibal Anibal, 1 ANIBAL PO BID PRN for 14 Days, #150 ML Prov:ROSA NINA SECRETARIAL TEACHER 08/14/23 Promethazine-Dm (Promethazine Dm 6.25-15 mg/5Ml) 1 Anibal Anibal, 5 ML PO TID, #150 ML Prov:FRED CARABALLO 02/25/23 Azithromycin (Azithromycin) 500 Mg Tab, 1 TAB PO DAILY, #5 TAB Prov:FRED CARABALLO 02/25/23 Reported Medications Ergocalciferol (Vitamin D) 50,000 Unit Cap, 1 CAP PO QWEEKLY 04/11/25 Information Source: Patient Mode of Arrival: Ambulatory Severity: Moderate Timing: Weeks (1) Duration: Since onset Past Medical History PAST MEDICAL HISTORY: Anxiety, Asthma, UTI'S Surgical History: Denies all surgeries TAFFY PULLER History: Denies all TAFFY PULLER Hx Family History Family History: Family hx of DM, Family hx of Cancer, Family hx of heart alex Social History Smoker: Non-Smoker Alcohol: Occasionally Drugs: Denies Drug Use Lives In: Home Constitutional: denies: chills, diaphoresis, fatigue, fever, malaise, sweats, weakness, others EENTM: denies: blurred vision, double vision, ear bleeding, ear discharge, ear drainage, ear pain, ear ringing, eye pain, eye redness, hearing loss, mouth pain, mouth swelling, nasal discharge, nose bleeding, nose congestion, nose pain, photophobia, tearing, throat pain, throat swelling, voice changes, others Respiratory: denies: cough, hemoptysis, orthopnea, SOB at rest, shortness of breath, SOB with excertion, stridor, wheezing, others Cardiovascular: denies: chest pain, dizzy spells, diaphoresis, Dyspnea on exertion, edema, irregular heart beat, left arm pain, lightheadedness, palpitations, PND, syncope, others Gastrointestinal: reports: abdominal pain; denies: abdomen distended, blood streaked bowels, constipated, diarrhea, dysphagia, difficulty swallowing, hematemesis, melena, nausea, poor appetite, poor fluid intake, rectal bleeding, rectal pain, vomiting, others Genitourinary: denies: abnormal vagina bleeding, burning, dyspareunia, dysuria, flank pain, frequency, hematuria, incontinence, pain, , vagina discharge, urgency, others Neurological: denies: dizziness, fainting, headache, left sided numbness, left sided weakness, numbness, paresthesia, pre-existing deficit, right sided numbness, right sided weakness, seizure, speech problems, tingling, tremors, weakness, others Musculoskeletal: reports: muscle pain; denies: back pain, gout, joint pain, joint swelling, muscle stiffness, neck pain, others Integumetry: denies: bruises, change in color, change in hair/nails, dryness, laceration, lesions, lumps, rash, wounds, others Allergic/Immunocompromised: denies: Difficulty Healing, Frequent Infections, Hives, Itching, others Hematologic/Lymphatic: denies: anemia, blood clots, easy bleeding, easy bruising, swollen glands, others Endocrine: denies: excessive hunger, excessive sweating, excessive thirst, excessive urination, flushing, intolerance to cold, intolerance to heat, unexplained weight gain, unexplained weight loss, others Psychiatric: denies: anxiety, bipolar disorder, depression, hopeless, panic disorder, schizophrenia, sleepless, suicidal, others All Other Systems: Reviewed and Negative Physical Exam General Appearance: Moderate Distress HEENT: Normal ENT Inspection, Pharynx Normal, TMs Normal Neck: Full Range of Motion, Non-Tender, Normal, Normal Inspection Respiratory: Chest Non-Tender, Lungs Clear, No Accessory Muscle Use, No Respiratory Distress, Normal Breath Sounds Cardiovascular: No Edema, No JVD, No Murmur, No Gallop, Normal Peripheral Pulses, Regular Rate/Rhythm Breast Exam: Deferred Gastrointestinal: No Organomegaly, Non Tender, No Pulsatile Mass, Normal Bowel Sounds, Soft Genitalia: Deferred Pelvic: Deferred Rectal: Deferred Extremities: No calf tenderness, Normal capillary refill, Normal inspection, Normal range of motion, Non-tender, No pedal edema Musculoskeletal : Apperance: Normal Neurologic: Alert, transit driver II-XII nml as Tested, No Motor Deficits, Normal Affect, Normal Mood, No Sensory Deficits Cerebellar Function: Normal Reflexes: Normal Skin: Dry, Normal Color, Warm Peripheral Pulses: 3+ Radial (R), 3+ Radial (L) Lymphatic: No Adenopathy Was a procedure done? Was a procedure done?: No Differential Dx Considerations may include: Viral syndrome, influenza, gastroenteritis X-Ray, Labs, Meds, VS Vital Signs Date Time Temp Pulse Resp B/P (MAP) Pulse Ox O2 Delivery O2 Flow Rate FiO2 06/16/25 11:55 97.8 87 16 122/79 (93) 99 97.8 06/16/25 10:26 98.1 89 15 128/88 99 98.1 Lab Test 06/16/25 11:40 06/16/25 11:11 Range/Units White Blood Count 7.5 4.4-10.8 10^3/uL Red Blood Count 4.71 4.0-5.20 10^6/uL Hemoglobin 12.6 12.2-16.2 g/dL Hematocrit 38.1 36.0-46.0 % Mean Corpuscular Volume 80.9 80.0-100.0 fL Mean Corpuscular Hemoglobin 26.7 L 28.0-32.0 pg Mean Corpuscular Hemoglobin Concent 33.0 32.0-36.0 g/dL Red Cell Distribution Width 16.3 H 11.8-14.3 % Platelet Count 345 140-450 10^3/uL Mean Platelet Volume 7.4 6.9-10.8 fL Neutrophils (%) (Auto) 59.6 37.0-80.0 % Lymphocytes (%) (Auto) 27.7 10.0-50.0 % Monocytes (%) (Auto) 11.2 0.0-12.0 % Eosinophils (%) (Auto) 0.8 0.0-7.0 % Basophils (%) (Auto) 0.7 0.0-2.0 % Neutrophils # (Auto) 4.5 1.6-8.6 10 ^3/uL Lymphocytes # (Auto) 2.1 0.4-5.4 10 ^3/uL Monocytes # (Auto) 0.8 0-1.3 10 ^3/uL Eosinophils # (Auto) 0.1 0-0.8 10 ^3/uL Basophils # (Auto) 0.1 0-0.2 10 ^3/uL Nucleated Red Blood Cells 0.0 % D-Dimer, Quantitative 0.35 0.0-0.49 mg/L FEU Sodium Level 140 136-145 mmol/L Potassium Level 3.6 3.5-5.1 mmol/L Chloride Level 106 98-107 mmol/L Carbon Dioxide Level 22 20-31 mmol/L Anion Gap 12 5-15 Blood Urea Nitrogen 9 9-23 mg/dL Creatinine 0.79 0.550-1.02 mg/dL Glomerular Filtration Rate Calc 110 >90 mL/min BUN/Creatinine Ratio 11.4 10.0-20.0 Serum Glucose 79 74-106 mg/dL Calcium Level 9.5 8.7-10.4 mg/dL Urine Color Light-orange Yellow Urine Clarity Turbid H Clear Urine pH 6.0 5.0-9.0 Urine Specific [place] 1.031 1.001-1.035 Urine Protein 1+ H Negative Urine Ketones Negative Negative Urine Blood 3+ H Negative /uL Urine Nitrite Negative Negative Urine Bilirubin Negative Negative Urine Urobilinogen Normal Negative mg/dL Urine Leukocyte Esterase Negative Negative /uL Urine RBC 368 0 - 4 /hpf Urine Microscopic WBC 13 H 0-5 /HPF Urine Squamous Epithelial Cells Mod <5 /hpf Urine Bacteria Few H None Seen /hpf Urine Mucus Few None Seen Urine Glucose Normal Normal mg/dL Patient alert. Complaining of generalized body aches. Has been having the same symptom for a week. Vitals stable. Answering all questions. No sign of any distress. Abdomen is soft nontender. Lungs clear. No acute process. WBC within normal limits. Hemoglobin within normal limits. D-dimer within normal limits. Urinalysis shows blood. Few bacteria. Was given prescription of Keflex antibiotic. Explained to the patient. Continue monitoring. Was told to follow up with her primary care physician. Was told to come back if there is any problem. Time of 1ST Reevaluation: 11:17 Reevaluation 1ST: Improved Patient Education/Counseling: Diagnosis, Treatment, Prognosis Family Education/Counseling: No Family Present SEPSIS Sepsis Screen Date sepsis recognized/suspect: Jun 16, 2025 Time Sepsis recognized/suspect: 1028 Recent Procedure: No On Antibiotic Therapy: No Respiratory Rate >20: No Heart Rate >90: No Temp<36 C (96.8 F) or >38.3 C: No SBP <90 or MAP <65 mmHG: No New Acute Mental Status Change: No Is the patient on CPAP, BIPAP,: No Vital Signs Date Time Temp Pulse Resp B/P (MAP) Pulse Ox O2 Delivery O2 Flow Rate FiO2 06/16/25 11:55 97.8 87 16 122/79 (93) 99 97.8 06/16/25 10:26 98.1 89 15 128/88 99 98.1 Laboratory Tests Test 06/16/25 11:40 White Blood Count 7.5 10^3/uL (4.4-10.8) Departure 1 Departure Time of Disposition: 11:41 Impression: Primary Impression: Acute cystitis with hematuria Disposition: 01 HOME / SELF CARE / HOMELESS Condition: Good e-Prescriptions Cephalexin (KEFLEX CAPSULE) 250 Mg Cp 250 MG PO TID for 5 Days, #15 BOTTLE Prov: MASON CASIANO MD 06/16/25 Discharged With: Self Critical Care Note Critical Care Time?: No Stability Stability form required: No I personally scribed for MASON CASIANO MD ([email or web address]) on 06/16/25 at 11:17. Electronically submitted by Noemy Johnson ([facility]). MASON CASIANO MD Jun 16, 2025 11:17
[2025-06-16 11:55] VITALS: BP 122/79; PULSE 87; RESP 16; TEMP 97.8; O2SAT 99
[2025-06-16 12:22] LABS: Hematocrit 38.1 % (36.0-46.0); Hemoglobin 12.6 g/dL (12.2-16.2); Mean Corpuscular Hemoglobin 26.7 pg (28.0-32.0); Mean Corpuscular Volume 80.9 fL (80.0-100.0); Nucleated Red Blood Cells % 0.0 %
[2025-06-16 12:25] LABS: Urine Protein, UAD 1+ (Negative)
[2025-06-16 12:31] LABS: Chloride 106 mmol/L (98-107); Potassium 3.6 mmol/L (3.5-5.1); Sodium 140 mmol/L (136-145)
[2025-06-16 12:32] LABS: Anion Gap 12 (5-15); Carbon Dioxide 22 mmol/L (20-31)
[2025-06-16 12:33] LABS: Calcium 9.5 mg/dL (8.7-10.4)
[2025-06-16 12:37] LABS: Glucose 79 mg/dL (74-106)
[2025-06-16 12:38] LABS: BUN/Creatinine Ratio 11.4 (10.0-20.0)
[2025-06-16 12:40] LABS: Blood Urea Nitrogen 9 mg/dL (9-23)
[2025-06-16] MEDS ORDERED: CEPH250C PO (13:00)
== END 2025-06-16 13:10 | disposition home or self-care (01) ==
LOC: ER 10:25
DX: N30.01 Acute cystitis with hematuria (principal); F41.9 Anxiety disorder, unspecified; J45.909 Unspecified asthma, uncomplicated; Z88.0 Allergy status to penicillin
CPT/HCPCS: 36415; 80048; 81001; 85025; 85379

== ENCOUNTER 2025-08-22 09:44 | Emergency (ER) | payer OTHER, MEDICAID ==
[~2025-08-22] VITALS: Ht 162.6 cm; Wt 121.0 kg
[~2025-08-22 09:44] MED LIST changes: +CEPH250C PO
[2025-08-22 09:46] VITALS: BP 137/94; PULSE 80; RESP 18; TEMP 97.5; O2SAT 98
--- NOTE | 2025-08-22 10:37 | ED.PDOC ---
General HPI Comments A 20 YEAR OLD FEMALE PRESENTS TO THE ED WITH COMPLAINT OF PELVIC PAIN. PATIENT STATES SHE HAS BEEN EXPERIENCING PELVIC PAIN WITH PAINFUL URINATION AND NAUSEA FOR THE PAST 4 DAYS. PATIENT DENIES HEMATURIA, FLANK PAIN, FEVER, CHILLS, SHORTNESS OF BREATH, CHEST PAIN, ABDOMINAL PAIN, VOMITING, HEADACHE, OR OTHER COMPLAINTS. NO OTHER SYMPTOMS OR MODIFYING FACTORS AT THIS TIME. PATIENT IS ALERT, ORIENTED X 4, AND HAS STEADY GAIT. Chief Complaint: Abdominal Pain Time Seen by MD: 09:47 Primary Care Provider: kun Reviewed notes: Nurses Notes, Medications, Allergies Allergies: Coded Allergies: Penicillin G (Verified Allergy, Severe, 06/28/11) Penicillins (Verified Allergy, Unknown, 01/26/25) Home Meds Active Scripts Cephalexin (KEFLEX CAPSULE) 250 Mg Cp, 250 MG PO TID for 5 Days, #15 BOTTLE Prov:MASON CASIANO MD 06/16/25 Hydroxyzine Hcl (Hydroxyzine Hcl) 25 Mg Tab, 1 TAB PO TID, #30 TAB Prov:ALEX GUTIÉRREZ MD 03/03/24 Albuterol Sulfate (VENTOLIN MDI) 90 Mcg Ih, 90 MCG IN Q4HR PRN, #1 INH Prov:JUJU FREEMAN SEMICONDUCTOR WAFERS SAW OPERATOR 10/05/23 Promethazine-Dm (Promethazine Dm 6.25-15 mg/5Ml) 1 Anibal Anibal, 1 ANIBAL PO BID PRN for 14 Days, #150 ML Prov:ROSA NINA SEMICONDUCTOR WAFERS SAW OPERATOR 08/14/23 Promethazine-Dm (Promethazine Dm 6.25-15 mg/5Ml) 1 Anibal Anibal, 5 ML PO TID, #150 ML Prov:FRED CARBAALLO 02/25/23 Azithromycin (Azithromycin) 500 Mg Tab, 1 TAB PO DAILY, #5 TAB Prov:FRED CARABALLO 02/25/23 Reported Medications Ergocalciferol (Vitamin D) 50,000 Unit Cap, 1 CAP PO QWEEKLY 04/11/25 Information Source: Patient Mode of Arrival: Ambulatory Severity: Moderate Inability to void: None Timing: Hours Duration: Since onset, Days Prehospital treatment: None Onset: Spontaneous Symptoms: Dysuria, Other (PELVIC PAIN) Location: Suprapubic Modifying factors: None associated signs and symptoms: Abdominal Pain Past Medical History PAST MEDICAL HISTORY: Anxiety, Asthma, Liver, UTI'S Surgical History: Denies all surgeries DIE SET UP WORKER History: Denies all DIE SET UP WORKER Hx Family History Family History: Reviewed,noncontributory to illness, Family hx of DM, Family hx of Cancer, Family hx of heart alex Social History Smoker: Non-Smoker Alcohol: Occasionally Drugs: Denies Drug Use Lives In: Home Constitutional: denies: chills, diaphoresis, fatigue, fever, malaise, sweats, weakness, others EENTM: denies: blurred vision, double vision, ear bleeding, ear discharge, ear drainage, ear pain, ear ringing, eye pain, eye redness, hearing loss, mouth pain, mouth swelling, nasal discharge, nose bleeding, nose congestion, nose pain, photophobia, tearing, throat pain, throat swelling, voice changes, others Respiratory: denies: cough, hemoptysis, orthopnea, SOB at rest, shortness of breath, SOB with excertion, stridor, wheezing, others Cardiovascular: denies: chest pain, dizzy spells, diaphoresis, Dyspnea on exertion, edema, irregular heart beat, left arm pain, lightheadedness, palpi tations, PND, syncope, others Gastrointestinal: reports: abdominal pain, nausea; denies: abdomen distended, blood streaked bowels, constipated, diarrhea, dysphagia, difficulty swallowing, hematemesis, melena, poor appetite, poor fluid intake, rectal bleeding, rectal pain, vomiting, others Genitourinary: reports: dysuria, pain (PELVIC PAIN); denies: abnormal vagina bleeding, burning, dyspareunia, flank pain, frequency, hematuria, incontinence, , vagina discharge, urgency, others Neurological: denies: dizziness, fainting, headache, left sided numbness, left sided weakness, numbness, paresthesia, pre-existing deficit, right sided numbness, right sided weakness, seizure, speech problems, tingling, tremors, weakness, others Musculoskeletal: denies: back pain, gout, joint pain, joint swelling, muscle pain, muscle stiffness, neck pain, others Integumetry: denies: bruises, change in color, change in hair/nails, dryness, laceration, lesions, lumps, rash, wounds, others Allergic/Immunocompromised: denies: Difficulty Healing, Frequent Infections, Hives, Itching, others Hematologic/Lymphatic: denies: anemia, blood clots, easy bleeding, easy bruising, swollen glands, others Endocrine: denies: excessive hunger, excessive sweating, excessive thirst, excessive urination, flushing, intolerance to cold, intolerance to heat, unexplained weight gain, unexplained weight loss, others Psychiatric: denies: anxiety, bipolar disorder, depression, hopeless, panic disorder, schizophrenia, sleepless, suicidal, others All Other Systems: Reviewed and Negative Physical Exam General Appearance: No Apparent Distress HEENT: Normal ENT Inspection, PERRL/EOMI, Pharynx Normal, TMs Normal Neck: Full Range of Motion, Non-Tender, Normal, Normal Inspection Respiratory: Chest Non-Tender, Lungs Clear, No Accessory Muscle Use, No Respiratory Distress, Normal Breath Sounds Cardiovascular: No Edema, No JVD, No Murmur, No Gallop, Normal Peripheral Pulses, Regular Rate/Rhythm Breast Exam: Deferred Gastrointestinal: No Organomegaly, No Pulsatile Mass, Normal Bowel Sounds, Soft, Suprapubic, Tenderness (SUPRAPUBIC, NO GUARDING AND REBOUND TENDERNESS. ) Genitalia: Deferred Pelvic: Normal External Exam, Tender Adnexa (TENDERNESS PELVIC, NO GUARDING AND REBOUND TENDERNESS. ), Tender Uterus Rectal: Deferred Extremities: No calf tenderness, Normal capillary refill, Normal inspection, Normal range of motion, Non-tender, No pedal edema Musculoskeletal : Apperance: Normal Neurologic: Alert, manager water II-XII nml as Tested, No Motor Deficits, Normal Affect, Normal Mood, No Sensory Deficits Cerebellar Function: Normal Reflexes: Normal Skin: Dry, Normal Color, Warm Peripheral Pulses: 2+ carotid (R), 2+ carotid (L) Lymphatic: No Adenopathy Was a procedure done? Was a procedure done?: No Differential Diagnosis Kidney stone (Female): N/A Kidney stone (Male): N/A Penile/Scrotal: N/A Urinary Problem (Male): N/A Urinary Problem (Female): Pyelonephritis, Urolithiasis, UTI, Vaginitis X-Ray, Labs, Meds, VS Vital Signs Date Time Temp Pulse Resp B/P (MAP) Pulse Ox O2 Delivery O2 Flow Rate FiO2 08/22/25 09:46 97.5 80 18 137/94 98 97.5 Lab Test 08/22/25 10:59 08/22/25 00:00 Range/Units White Blood Count 6.3 4.4-10.8 10^3/uL Red Blood Count 4.87 4.0-5.20 10^6/uL Hemoglobin 12.6 12.2-16.2 g/dL Hematocrit 39.1 36.0-46.0 % Mean Corpuscular Volume 80.4 80.0-100.0 fL Mean Corpuscular Hemoglobin 25.9 L 28.0-32.0 pg Mean Corpuscular Hemoglobin Concent 32.2 32.0-36.0 g/dL Red Cell Distribution Width 14.9 H 11.8-14.3 % Platelet Count 330 140-450 10^3/uL Mean Platelet Volume 8.1 6.9-10.8 fL Neutrophils (%) (Auto) 58.4 37.0-80.0 % Lymphocytes (%) (Auto) 26.8 10.0-50.0 % Monocytes (%) (Auto) 9.9 0.0-12.0 % Eosinophils (%) (Auto) 4.1 0.0-7.0 % Basophils (%) (Auto) 0.8 0.0-2.0 % Neutrophils # (Auto) 3.7 1.6-8.6 10 ^3/uL Lymphocytes # (Auto) 1.7 0.4-5.4 10 ^3/uL Monocytes # (Auto) 0.6 0-1.3 10 ^3/uL Eosinophils # (Auto) 0.3 0-0.8 10 ^3/uL Basophils # (Auto) 0.1 0-0.2 10 ^3/uL Nucleated Red Blood Cells 0.1 % Sodium Level 141 136-145 mmol/L Potassium Level 4.0 3.5-5.1 mmol/L Chloride Level 107 98-107 mmol/L Carbon Dioxide Level 25 20-31 mmol/L Anion Gap 9 5-15 Blood Urea Nitrogen 9 9-23 mg/dL Creatinine 0.80 0.550-1.02 mg/dL Glomerular Filtration Rate Calc 108 >90 mL/min BUN/Creatinine Ratio 11.3 10.0-20.0 Serum Glucose 90 74-106 mg/dL Calcium Level 9.4 8.7-10.4 mg/dL Urine Color Light-orange Yellow Urine Clarity Turbid H Clear Urine pH 6.0 5.0-9.0 Urine Specific [place] 1.027 1.001-1.035 Urine Protein 1+ H Negative Urine Ketones Negative Negative Urine Blood 3+ H Negative /uL Urine Nitrite Negative Negative Urine Bilirubin Negative Negative Urine Urobilinogen Normal Negative mg/dL Urine Leukocyte Esterase Negative Negative /uL Urine RBC 341 0 - 4 /hpf Urine Microscopic WBC 10 H 0-5 /HPF Urine Squamous Epithelial Cells Few <5 /hpf Urine Bacteria Few H None Seen /hpf Urine Mucus Few None Seen Urine Glucose Normal Normal mg/dL Urine Test Negative Negative X-Ray, Labs, Meds, VS Comment EXTERNAL MEDICAL RECORDS REVIEWED: [NONE] INDEPENDENT HISTORIANS: [NONE] SOCIAL DETERMINANTS OF HEALTH: [NONE] LABS ORDERED: CBC, BMP, UA REVIEWED AND INTERPRETED RESULTS: NORMAL IMAGING ORDERED: US PELVIS: PATIENT ELOPED PRIOR TO IMAGING BEING DONE TREATMENTS ORDERED: NONE PROCEDURES PERFORMED: NONE CRITICAL CARE TIME: NONE I HAVE DISCUSSED THE PATIENT WITH THE ATTENDING PHYSICIAN DR. CASIANO AND HE AGREES WITH THE PATIENT'S PLAN OF CARE. PATIENT WAS CALLED MULTIPLE TIMES AND APPEARS TO HAVE ELOPED PRIOR TO IMAGING, TREATMENT, AND DISCHARGE. Time of 1ST Reevaluation: 12:30 Reevaluation 1ST: Improved Patient Education/Counseling: Diagnosis, Treatment Family Education/Counseling: Diagnosis, Treatment SEPSIS Sepsis Screen Date sepsis recognized/suspect: Aug 22, 2025 Time Sepsis recognized/suspect: 947 Recent Procedure: No On Antibiotic Therapy: No Respiratory Rate >20: No Heart Rate >90: No Temp<36 C (96.8 F) or >38.3 C: No SBP <90 or MAP <65 mmHG: No New Acute Mental Status Change: No Is the patient on CPAP, BIPAP,: No Vital Signs Date Time Temp Pulse Resp B/P (MAP) Pulse Ox O2 Delivery O2 Flow Rate FiO2 08/22/25 09:46 97.5 80 18 137/94 98 97.5 Laboratory Tests Test 08/22/25 10:59 White Blood Count 6.3 10^3/uL (4.4-10.8) Departure 1 Departure Time of Disposition: 12:30 Impression: Primary Impression: Acute pelvic pain Disposition: 07 LEFT AWOL/ELOPED Condition: Stable Critical Care Note Critical Care Time?: No Stability Stability form required: No I personally scribed for FRED CARABALLO ([email or web address]) on 10/23/25 at 10:37. Electronically submitted by Darinel Pyle ([email or web address]). I personally scribed for FRED CARABALLO ([email or web address]) on 08/22/25 at 11:56. Electronically submitted by Darinel Pyle ([email or web address]). FRED CARABALLO Aug 22, 2025 10:37
[2025-08-22 11:36] LABS: Hematocrit 39.1 % (36.0-46.0); Hemoglobin 12.6 g/dL (12.2-16.2); Mean Corpuscular Hemoglobin 25.9 pg (28.0-32.0); Mean Corpuscular Volume 80.4 fL (80.0-100.0); Nucleated Red Blood Cells % 0.1 %
[2025-08-22 11:42] LABS: Potassium 4.0 mmol/L (3.5-5.1); Sodium 141 mmol/L (136-145)
[2025-08-22 11:43] LABS: Anion Gap 9 (5-15); Carbon Dioxide 25 mmol/L (20-31)
[2025-08-22 11:44] LABS: Calcium 9.4 mg/dL (8.7-10.4); Chloride 107 mmol/L (98-107)
[2025-08-22 11:49] LABS: BUN/Creatinine Ratio 11.3 (10.0-20.0); Glucose 90 mg/dL (74-106)
[2025-08-22 11:50] LABS: Blood Urea Nitrogen 9 mg/dL (9-23)
[2025-08-22 12:05] LABS: Urine Protein, UAD 1+ (Negative)
== END 2025-08-22 12:31 | disposition left against medical advice (07) ==
LOC: ER 09:44
DX: R10.20 Pelvic and perineal pain unspecified side (principal); R30.0 Dysuria; R11.0 Nausea; F41.9 Anxiety disorder, unspecified; J45.909 Unspecified asthma, uncomplicated; Z87.440 Personal history of urinary (tract) infections; Z88.0 Allergy status to penicillin
CPT/HCPCS: 36415; 80048; 81001; 81025; 85025

== ENCOUNTER 2025-09-11 11:30 | Emergency (ER) | payer MEDICAID ==
[~2025-09-11] VITALS: Ht 160 cm; Wt 116.8 kg
[2025-09-11 13:45] VITALS: BP 130/72; TEMP 98
[2025-09-11 13:57] VITALS: PULSE 92; RESP 16; O2SAT 97
--- NOTE | 2025-09-11 14:01 | ED.PDOC ---
GI ASSESSMENT HPI Comments A 20 YEAR OLD FEMALE PRESENTS TO THE ED WITH COMPLAINT OF ABDOMINAL PAIN. PT HAS BEEN HAVING DIFFUSE ABDOMINAL PAIN WITH ASSOCIATED LOWER PELVIC PAIN FOR THE PAST 3X WEEKS. PT HAS ASSOCIATED URINARY COMPLAINT OF DARK URINE. PATIENT DENIES FEVER, CHILLS, SHORTNESS OF BREATH, CHEST PAIN, ABDOMINAL PAIN, NAUSEA, VOMITING, HEADACHE, OR OTHER COMPLAINTS. NO OTHER SYMPTOMS OR MODIFYING FACTORS AT THIS TIME. PATIENT IS ALERT, ORIENTED X 4, AND HAS STEADY GAIT. Chief Complaint: ABDOMINAL PAIN Time Seen by MD: 14:03 Primary Care Provider: tristan Reviewed Notes: Nurses Notes, Medications, Allergies Allergies: Coded Allergies: Penicillin G (Verified Allergy, Severe, 06/28/11) Penicillins (Verified Allergy, Unknown, 01/26/25) Home Meds Active Scripts Sulfamethoxazole W/Trimethopri (Bactrim Ds Tablet) 1 Tab Tb, 1 TAB PO BID, #14 TAB Prov:FRED CARABALLO 09/11/25 Pantoprazole Sodium Sesquihydr (Protonix) 40 Mg Tab, 40 MG PO DAILY, #30 TAB Prov:FRED CARABALLO 09/11/25 Cephalexin (KEFLEX CAPSULE) 250 Mg Cp, 250 MG PO TID for 5 Days, #15 BOTTLE Prov:MASON CASIANO MD 06/16/25 Hydroxyzine Hcl (Hydroxyzine Hcl) 25 Mg Tab, 1 TAB PO TID, #30 TAB Prov:ALEX GUTIÉRREZ MD 03/03/24 Albuterol Sulfate (VENTOLIN MDI) 90 Mcg Ih, 90 MCG IN Q4HR PRN, #1 INH Prov:JUJU FREEMAN SHAREPOINT APPLICATION ARCHITECT 10/05/23 Promethazine-Dm (Promethazine Dm 6.25-15 mg/5Ml) 1 Anibal Anibal, 1 ANIBAL PO BID PRN for 14 Days, #150 ML Prov:ROSA NINA [employer]POINT APPLICATION ARCHITECT 08/14/23 Promethazine-Dm (Promethazine Dm 6.25-15 mg/5Ml) 1 Anibal Anibal, 5 ML PO TID, #150 ML Prov:FRED CARABALLO 02/25/23 Azithromycin (Azithromycin) 500 Mg Tab, 1 TAB PO DAILY, #5 TAB Prov:FRED CARABALLO 02/25/23 Reported Medications Ergocalciferol (Vitamin D) 50,000 Unit Cap, 1 CAP PO QWEEKLY 04/11/25 Information Source: Patient, Friend Mode of Arrival: Ambulatory Brought in by: FRIEND Timing: Days Duration: Since onset, Days Prehospital treatment: None Quality: Aching, Cramping, Colicky Vomitus: None Severity: Mild, Moderate Recent: None Recent Hx of: None Pain Location: Epigastric, Suprapubic Modifying Factors: Nothing Associated sign and symptoms: Abdominal Pain Past Medical History PAST MEDICAL HISTORY: Anxiety, Asthma, Liver, UTI'S Surgical History: Denies all surgeries PEDICURIST History: Denies all PEDICURIST Hx Family History Family History: Reviewed,noncontributory to illness, Family hx of DM, Family hx of Cancer, Family hx of heart alex Social History Smoker: Non-Smoker Alcohol: Occasionally Drugs: Denies Drug Use Lives In: Home Constitutional: denies: chills, diaphoresis, fatigue, fever, malaise, sweats, weakness, others EENTM: denies: blurred vision, double vision, ear bleeding, ear discharge, ear drainage, ear pain, ear ringing, eye pain, eye redness, hearing loss, mouth pain, mouth swelling, nasal discharge, nose bleeding, nose congestion, nose pain, photophobia, tearing, throat pain, throat swelling, voice changes, others Respiratory: denies: cough, hemoptysis, orthopnea, SOB at rest, shortness of breath, SOB with excertion, stridor, wheezing, others Cardiovascular: denies: chest pain, dizzy spells, diaphoresis, Dyspnea on exertion, edema, irregular heart beat, left arm pain, lightheadedness, palpitations, PND, syncope, others Gastrointestinal: reports: abdominal pain; denies: abdomen distended, blood streaked bowels, constipated, diarrhea, dysphagia, difficulty swallowing, hematemesis, melena, nausea, poor appetite, poor fluid intake, rectal bleeding, rectal pain, vomiting, others Genitourinary: reports: burning, dysuria; denies: abnormal vagina bleeding, dyspareunia, flank pain, frequency, hematuria, incontinence, pain, , vagina discharge, urgency, others Neurological: denies: dizziness, fainting, headache, left sided numbness, left sided weakness, numbness, paresthesia, pre-existing deficit, right sided numbness, right sided weakness, seizure, speech problems, tingling, tremors, weakness, others Musculoskeletal: denies: back pain, gout, joint pain, joint swelling, muscle pain, muscle stiffness, neck pain, others Integumetry: denies: bruises, change in color, change in hair/nails, dryness, laceration, lesions, lumps, rash, wounds, others Allergic/Immunocompromised: denies: Difficulty Healing, Frequent Infections, Hives, Itching, others Hematologic/Lymphatic: denies: anemia, blood clots, easy bleeding, easy bruising, swollen glands, others Endocrine: denies: excessive hunger, excessive sweating, excessive thirst, excessive urination, flushing, intolerance to cold, intolerance to heat, unexplained weight gain, unexplained weight loss, others Psychiatric: denies: anxiety, bipolar disorder, depression, hopeless, panic disorder, schizophrenia, sleepless, suicidal, others All Other Systems: Reviewed and Negative Physical Exam General Appearance: No Apparent Distress, Obese HEENT: Normal ENT Inspection, PERRL/EOMI, Pharynx Normal, TMs Normal Neck: Full Range of Motion, Non-Tender, Normal, Normal Inspection Respiratory: Chest Non-Tender, Lungs Clear, No Accessory Muscle Use, No Respiratory Distress, Normal Breath Sounds Cardiovascular: No Edema, No JVD, No Murmur, No Gallop, Normal Peripheral Pulses, Regular Rate/Rhythm Breast Exam: Deferred Gastrointestinal: Epigastric, No Organomegaly, No Pulsatile Mass, Normal Bowel Sounds, Soft, Tenderness (EPIGASTRIC, NO GUARDING AND REBOUND TENDERNESS. ) Genitalia: Deferred Pelvic: Normal External Exam, Tender Uterus Rectal: Deferred Extremities: No calf tenderness, Normal capillary refill, Normal inspection, Normal range of motion, Non-tender, No pedal edema Musculoskeletal : Apperance: Normal Neurologic: Alert, vrt mechanic II-XII nml as Tested, No Motor Deficits, Normal Affect, Normal Mood, No Sensory Deficits Cerebellar Function: Normal Reflexes: Normal Skin: Dry, Normal Color, Warm Peripheral Pulses: 2+ carotid (R), 2+ carotid (L) Lymphatic: No Adenopathy Was a procedure done? Was a procedure done?: No GI differential Dx Differential Diagnosis: Gastritis/PUD, Gastroenteritis, Inflammatory BD, Pancreatitis, UTI, Dehydration, Electrolyte Imbalance, Food Poisoning, Stress Ulcer X-Ray, Labs, Meds, VS Vital Signs Date Time Temp Pulse Resp B/P (MAP) Pulse Ox O2 Delivery O2 Flow Rate FiO2 09/11/25 13:57 92 16 97 Room Air 09/11/25 13:45 98.0 92 16 130/72 (91) 97 98.0 09/11/25 11:32 97.0 99 18 131/84 98 97.0 Lab Test 09/11/25 14:15 09/11/25 13:50 Range/Units White Blood Count 7.5 4.4-10.8 10^3/uL Red Blood Count 4.94 4.0-5.20 10^6/uL Hemoglobin 13.1 12.2-16.2 g/dL Hematocrit 39.4 36.0-46.0 % Mean Corpuscular Volume 79.7 L 80.0-100.0 fL Mean Corpuscular Hemoglobin 26.4 L 28.0-32.0 pg Mean Corpuscular Hemoglobin Concent 33.1 32.0-36.0 g/dL Red Cell Distribution Width 15.4 H 11.8-14.3 % Platelet Count 326 140-450 10^3/uL Mean Platelet Volume 8.0 6.9-10.8 fL Neutrophils (%) (Auto) 61.0 37.0-80.0 % Lymphocytes (%) (Auto) 23.6 10.0-50.0 % Monocytes (%) (Auto) 13.3 H 0.0-12.0 % Eosinophils (%) (Auto) 1.1 0.0-7.0 % Basophils (%) (Auto) 1.0 0.0-2.0 % Neutrophils # (Auto) 4.6 1.6-8.6 10 ^3/uL Lymphocytes # (Auto) 1.8 0.4-5.4 10 ^3/uL Monocytes # (Auto) 1.0 0-1.3 10 ^3/uL Eosinophils # (Auto) 0.1 0-0.8 10 ^3/uL Basophils # (Auto) 0.1 0-0.2 10 ^3/uL Nucleated Red Blood Cells 0.4 % Sodium Level 143 136-145 mmol/L Potassium Level 3.8 3.5-5.1 mmol/L Chloride Level 107 98-107 mmol/L Carbon Dioxide Level 23 20-31 mmol/L Anion Gap 13 5-15 Blood Urea Nitrogen 12 9-23 mg/dL Creatinine 0.82 0.550-1.02 mg/dL Glomerular Filtration Rate Calc 105 >90 mL/min BUN/Creatinine Ratio 14.6 10.0-20.0 Serum Glucose 87 74-106 mg/dL Calcium Level 9.5 8.7-10.4 mg/dL Total Bilirubin 0.4 0.2-1.0 mg/dL Aspartate Amino Transferase (AST) 20 13-40 U/L Alanine Aminotransferase (ALT) 32 7-40 U/L Alkaline Phosphatase 111 46-116 U/L Total Protein 7.9 5.7-8.2 g/dL Albumin 4.5 3.2-4.8 g/dL Lipase 47 12-53 U/L Urine Color Light-orange Yellow Urine Clarity Turbid H Clear Urine pH 5.5 5.0-9.0 Urine Specific [place] 1.033 1.001-1.035 Urine Protein 1+ H Negative Urine Ketones Trace Negative Urine Blood 3+ H Negative /uL Urine Nitrite Negative Negative Urine Bilirubin Negative Negative Urine Urobilinogen Normal Negative mg/dL Urine Leukocyte Esterase Negative Negative /uL Urine RBC 21 0 - 4 /hpf Urine Microscopic WBC 2 0-5 /HPF Urine Squamous Epithelial Cells Few <5 /hpf Urine Amorphous Crystals Few None Seen /hpf Urine Bacteria Many H None Seen /hpf Urine Mucus Moderate None Seen Urine Yeast (Budding) Few None Seen /hpf Urine Glucose Normal Normal mg/dL Urine Test Negative Negative Urine Opiates Screen Neg NEGATIVE Urine Fentanyl Screen Pending Urine Barbiturates Screen Neg NEGATIVE Urine Phencyclidine Screen Neg NEGATIVE Urine Amphetamines Screen Neg NEGATIVE Urine Benzodiazepines Screen Neg NEGATIVE Urine Cocaine Screen Neg NEGATIVE Urine Cannabinoids Screen Pos NEGATIVE X-Ray, Labs, Meds, VS Comment COURSE: EXTERNAL MEDICAL RECORDS REVIEWED: [NONE] INDEPENDENT HISTORIANS: [NONE] SOCIAL DETERMINANTS OF HEALTH: [NONE] LABS ORDERED: CBC, CMP, UA, URINE , LIPASE, UDS REVIEWED AND INTERPRETED RESULTS: NONE IMAGING ORDERED: NONE TREATMENTS ORDERED: NONE PROCEDURES PERFORMED: NONE CRITICAL CARE TIME: NONE I HAVE DISCUSSED THE PATIENT WITH THE ATTENDING PHYSICIAN DR. HANSEN AND HE AGREES WITH THE PATIENT'S PLAN OF CARE AND DISPOSITION. BASED ON HISTORY OF PRESENT ILLNESS, AND PHYSICAL EXAM, PATIENT WILL BE DISCHARGED HOME. DISCUSSED PLAN FOR DISCHARGE HOME WITH RX [PROTONIX AND SEPTRA DS*]. MEDICATION WARNINGS GIVEN. SHARED DECISION MAKING: DISCUSSED WITH PATIENT THAT THEIR WORKUP WAS NORMAL. PATIENT INSTRUCTED TO FOLLOW UP WITH PRIMARY CARE PROVIDER IN 1-2 DAYS FOR RE- EVALUATION OF SYMPTOMS. PATIENT VERBALIZES UNDERSTANDING TO RETURN TO ED FOR NEW OR WORSENING SYMPTOMS OR IF FOLLOW UP WITH PCP CANNOT BE OBTAINED. PATIENT FEELS COMFORTABLE GOING HOME AT THIS TIME. ALL QUESTIONS ADDRESSED AT TIME OF DISCHARGE. Time of 1ST Reevaluation: 16:52 Reevaluation 1ST: Improved Patient Education/Counseling: Diagnosis, Treatment, Need For Follow Up Family Education/Counseling: Diagnosis, Treatment, Need For Follow Up Medical Screening: No EMC Exist At This Time SEPSIS Sepsis Screen Date sepsis recognized/suspect: Sep 11, 2025 Time Sepsis recognized/suspect: 1133 Recent Procedure: No On Antibiotic Therapy: No Respiratory Rate >20: No Heart Rate >90: Yes Temp<36 C (96.8 F) or >38.3 C: No SBP <90 or MAP <65 mmHG: No New Acute Mental Status Change: No Is the patient on CPAP, BIPAP,: No Physician Orders Drug Screen (09/11/25 13:54) Chlamydia/Gc Amplification (09/11/25 16:26) Vital Signs Date Time Temp Pulse Resp B/P (MAP) Pulse Ox O2 Delivery O2 Flow Rate FiO2 09/11/25 13:57 92 16 97 Room Air 09/11/25 13:45 98.0 92 16 130/72 (91) 97 98.0 09/11/25 11:32 97.0 99 18 131/84 98 97.0 Laboratory Tests Test 09/11/25 14:15 White Blood Count 7.5 10^3/uL (4.4-10.8) Departure 1 Departure Time of Disposition: 16:54 Impression: Primary Impression: GERD (gastroesophageal reflux disease) Qualified Codes: K21.9 - Gastro-esophageal reflux disease without esophagitis Additional Impression: UTI (urinary tract infection) Qualified Codes: N30.01 - Acute cystitis with hematuria Disposition: 01 HOME / SELF CARE / HOMELESS Condition: Stable Additional Instructions: INSTRUCTIONS: FOLLOW-UP WITH PCP IN 1 TO 2 DAYS. TAKE MEDICATIONS PRESCRIBED. RETURN TO ED FOR ANY NEW OR WORSENING SYMPTOMS. e-Prescriptions Sulfamethoxazole W/Trimethopri (Bactrim Ds Tablet) 1 Tab Tb 1 TAB PO BID, #14 TAB Prov: FRED CARABALLO 09/11/25 Pantoprazole Sodium Sesquihydr (Protonix) 40 Mg Tab 40 MG PO DAILY, #30 TAB Prov: FRED CARABALLO 09/11/25 Discharged With: Self Critical Care Note Critical Care Time?: No Stability Stability form required: No Heart Score Heart Score: Heart Score Response (Comments) Value History N/A 0 EKG N/A 0 Age N/A 0 Risk Factors N/A 0 Troponin N/A 0 Total 0 I personally scribed for FRED CARABALLO ([email or web address]) on 09/11/25 at 14:01. Electronically submitted by Michel Cerrato ([email or web address] [place]). I personally scribed for FRED CARABALLO ([email or web address]) on 09/11/25 at 14:09. Electronically submitted by Michel Cerrato ([email or web address]). FRED CARABALLO Sep 11, 2025 14:01
[2025-09-11 14:36] LABS: Hematocrit 39.4 % (36.0-46.0); Hemoglobin 13.1 g/dL (12.2-16.2); Mean Corpuscular Hemoglobin 26.4 pg (28.0-32.0); Mean Corpuscular Volume 79.7 fL (80.0-100.0); Nucleated Red Blood Cells % 0.4 %
[2025-09-11 14:57] LABS: Alanine Aminotransferase 32 U/L (7-40); Alkaline Phosphatase 111 U/L (46-116); Anion Gap 13 (5-15); BUN/Creatinine Ratio 14.6 (10.0-20.0); Blood Urea Nitrogen 12 mg/dL (9-23); Calcium 9.5 mg/dL (8.7-10.4); Carbon Dioxide 23 mmol/L (20-31); Glucose 87 mg/dL (74-106); Lipase 47 U/L (12-53); Potassium 3.8 mmol/L (3.5-5.1); Sodium 143 mmol/L (136-145); Total Protein 7.9 g/dL (5.7-8.2)
[2025-09-11 14:58] LABS: Albumin 4.5 g/dL (3.2-4.8); Bilirubin, Total 0.4 mg/dL (0.2-1.0)
[2025-09-11 15:03] LABS: Chloride 107 mmol/L (98-107)
[2025-09-11 15:33] LABS: Urine Amorphous Crystal FEW /hpf (None Seen); Urine Budding Yeast FEW /hpf (None Seen); Urine Protein, UAD 1+ (Negative)
[2025-09-11 15:42] LABS: Cannabinoid Screen, Urine Pos (NEGATIVE)
[2025-09-11 15:55] LABS: Amphetamine Screen, Urine Neg (NEGATIVE); Barbiturate Scree,Urine Neg (NEGATIVE); Benzodiazephine Screen, Urine Neg (NEGATIVE); Cocaine Screen, Urine Neg (NEGATIVE); Opiate Scree,Urine Neg (NEGATIVE); Phencyclidine Screen, Urine Neg (NEGATIVE)
[2025-09-11] MEDS ORDERED: PANT40TA2 PO (16:49)
[2025-09-11] MEDS ORDERED: BACDST PO (16:49)
== END 2025-09-11 16:50 | disposition home or self-care (01) ==
LOC: ER 11:30
DX: N39.0 Urinary tract infection, site not specified (principal); K21.9 Gastro-esophageal reflux disease without esophagitis; F41.9 Anxiety disorder, unspecified; J45.909 Unspecified asthma, uncomplicated; Z79.899 Other long term (current) drug therapy; Z87.440 Personal history of urinary (tract) infections; Z88.0 Allergy status to penicillin
CPT/HCPCS: 36415; 80053; 80307; 81001; 81025; 83690; 85025